=== PATIENT | male | born 1960 | race Caucasian/White ===

== ENCOUNTER 2016-06-06 10:57 | Inpatient (IN) | payer OTHER ==
[~2016-06-06] VITALS: Ht 180.3 cm; Wt 96.9 kg
[~2016-06-06 10:57] MED LIST: CEPH500T PO; NAPR500T5 PO
[2016-06-06 11:05] VITALS: BP_SYST 121; BP_SYST 123; BP_DIAS 61; BP_DIAS 72; PULSE 103; PULSE 109; RESP 19; O2SAT 93; O2SAT 95
--- NOTE | 2016-06-06 11:08 | ED.REPORT ---
HPI-Extremity Problem Lower Date of Service Jun 06, 2016 ED Provider: Jairo Ramos MD This is a 55 year old male presenting to the emergency department via EMS complaining of left foot rash and pain that began 1 week ago. States his shoe caused irritation to skin on L foot. Reports increased pain, discharge, and swelling at this time. Associated with fever an chills. Denies nausea, vomiting , cough, SOB, abdominal pain. Nursing Notes Stated Complaint: LEFT FOOT CELULITIS Nursing Notes Reviewed: Yes Allergies: Coded Allergies: penicillin (Verified Allergy, Intermediate, rash hives, 12/08/14) Scheduled Cephalexin (Cephalexin) 500 Mg Tablet 500 MG PO QID Scheduled PRN Naproxen (Naproxen) 500 Mg Tablet.dr 500 MG PO BID PRN PRN For Pain General Time Seen by MD: 11:06 Chief Complaint Other Hx Obtained From: Patient Arrived By: Walk-in Onset Occurred: Yesterday Symptom Duration: Since onset Severity: Current: Mild Pertinent Negative: Pt denies other symptoms Recent Healthcare: No recent doctor visit, No recent hospitalization Similar Sx Previous: No Past Medical History Past Medical History Notes: Healthy male Past Medical History none reported Past Surgical History none reported Smoking History Current Every Day Smoker Social History Alcohol Use: Denies alcohol use Drug Use: In recovery Other Social History: Local resident Ambulatory Status Independent Review of Systems Constitutional: Denies: Chills, Fever Musculoskeletal: Reports: Extremity pain Skin: Reports Rash, Reports Swelling Neurologic: Denies: Headache Complete sys rev & neg: except as marked. Physical Exam Initial Vital Signs Vital Signs (First) Date Time Temp Pulse Resp B/P Pulse Ox O2 Delivery O2 Flow Rate FiO2 06/06/16 11:05 109 121/72 95 06/06/16 11:05 37.0 19 Room Air - Initial VS: Reviewed General/Constitutional: Well-developed, Well-nourished Head / Eyes: Atraumatic, Normocephalic, PERRL ENT: Mucous membranes moist, Conjunctiva normal, No scleral icterus Neck: Supple, Non-tender, Full range of motion Respiratory: Breath sounds normal, Clear to auscultation, No respiratory distress Cardiovascular: Regular rate & rhythm, Heart sounds normal, Intact distal pulses Abdomen / GI: Soft, Non-tender, No guarding, No rebound, No distention Upper Extremities: Vascular intact, Neuro intact, No swelling, No tenderness Skin: Warm, Dry, No cyanosis Neurologic: Alert, Oriented, Nonfocal Psychiatric: Mood/affect normal, Behavior normal, Normal thought content Lower Extremity / Pelvis / MS: Atraumatic, Inspection NL, Full range of motion , No swelling, Non-tender, No erythema, No deformity, Neurologic intact, Vascular intact, No edema Ankle / Foot: Neurologic intact diffuse eryehtma over L MCP joint with purulent discharge. 5x4 cm of erythema. Interpretation & Diagnostics Lab Results Interpretation Result Diagram: 06/06/16 1122 06/06/16 1122 Test 06/06/16 11:22 White Blood Count 14.1th/mm3 (3.8-10.1) Red Blood Count 4.87mil/mm3 (4.40-5.80) Hemoglobin 15.1g/dL (13.8-17.2) Hematocrit 44.8% (41.0-50.0) Mean Corpuscular Volume 92.0fL (81-100) Mean Corpuscular Hemoglobin 31.0pg (27.0-35.0) Mean Corpuscular Hemoglobin Concent 33.7% (32.0-37.0) Red Cell Distribution Width 13.4% (12.3-15.4) Platelet Count 361bil/L (150-400) Neutrophils (%) (Auto) 70.4% (40-74) Lymphocytes (%) (Auto) 15.0% (14-46) Monocytes (%) (Auto) 10.3% (4-12) Eosinophils (%) (Auto) 3.3% (0-5) Basophils (%) (Auto) 0.4% (0-3) Prothrombin Time 10.2sec (8.1-12.5) Prothromb Time International Ratio 0.95ratio Activated Partial Thromboplast Time 34.0sec (22.8-33.0) Sodium Level 135mEq/L (134-144) Potassium Level 4.2mEq/L (3.5-5.2) Chloride Level 101mEq/L (97-108) Carbon Dioxide Level 21mmol/L (18-29) Blood Urea Nitrogen 10mg/dL (6-24) Creatinine 1.14mg/dL (0.76-1.27) Estimat Glomerular Filtration Rate 71mL/min (>59) Glucose Level 97mg/dL (60-99) Lactic Acid Level 1.4mmol/L (0.4-2.0) Calcium Level 8.4mg/dL (8.5-10.1) Total Bilirubin 0.5mg/dL (0.0-1.2) Aspartate Amino Transf (AST/SGOT) 17U/L (0-50) Alanine Aminotransferase (ALT/SGPT) 15U/L (0-44) Alkaline Phosphatase 67U/L (25-150) Total Protein 7.1g/dL (6.4-8.4) Albumin 3.5g/dL (3.4-5.0) ECG Interpretation ECG Interpretation: NSR at rate of 87 Time: 11:46 Interpreted by: ED physician X-Ray Interpretation Xray Interpretation: IMPRESSION: First digit soft tissue prominence which could be consistent with given history of abscess. No visualized underlying osseous abnormality. Dictated by: Maureen Castellanos M.D. on 06/06/2016 at 11:36 Approved by: Maureen Castellanos M.D. on 06/06/2016 at 11:37 Study Performed: L Toe Re-Eval/Medical Decision Med Decision/Clinical Course 55-year-old male homeless former IV drug user presenting with left great toe abscess and cellulitis times one week. No osteomyelitis on x-ray. Discussed with podiatry and we will admit for IV vancomycin and cefepime given penicillin allergy. Nothing by mouth at midnight. Podiatry to see today. Re-Evaluation/Progress : Time of Eval: 12:53 Re-Evaluation/Progress Note: Discussed need for admission, all questions addressed. Consultation #1: Referral / Consult Name: Edwin Landeros DPM Call Returned at: 12:42 Agriculture Scientist: Will see patient, Agrees with eval, Agrees with plan Note: Front Desk Administrator recommends admit Consultation #2: Referral / Consult Name: Fredy Abarca MD Consulted With: Hospitalist Call Returned at: 13:19 Agriculture Scientist: Accepts admit Counseled Regarding: Diagnosis, Lab results, Need for follow-up, Need for admission Discharge & Departure Impression: Primary Impression: Cellulitis Site of cellulitis: extremity Site of cellulitis of extremity: lower extremity Laterality: left Qualified Code: L03.116 - Cellulitis of left lower limb Disposition: ADMITTED TO HOSPITAL Discharge Condition All VS Reviewed: Yes Condition: Stable Referrals: Rae Salcedo MD (PCP) Scribe Attestation Portions of this note were transcribed by America Barksdale. I, Dr. Ramos personally performed the history, physical exam and medical decision-making; I reviewed and confirmed the accuracy of the information in the transcribed note. Signed by: miko Aguirre. 06/06/2016, 15:00. Jairo Ramos MD Jun 06, 2016 11:08 AMERICA BARKSDALE Jun 06, 2016 11:14
[2016-06-06] MEDS ORDERED: 0.9% Sodium Chloride 1,000 ML IV ONE (11:17)
[2016-06-06] MEDS ORDERED: Vancomycin Dose per Pharmacist XX ONE (11:20)
[2016-06-06] MEDS ORDERED: Cefepime Inj 2 GM in IV Premix 1 EACH IV ONE (11:30)
[2016-06-06] MEDS ORDERED: Vancomycin Inj 1,500 MG in 0.9% Sodium Chloride 500 ML IV ONE (11:35)
--- NOTE | 2016-06-06 11:39 | DRSVH ---
PROCEDURE: X-RAY TOES, TWO VIEWS INDICATIONS: L great toe re abscess TECHNIQUE: 3 views of the first toe(s) acquired. COMPARISON: None. FINDINGS: Bones: No fractures or dislocations. No suspicious bony lesions. Soft tissues: No suspicious soft tissue densities. Soft tissue prominence is present within the mid and distal aspect of the first digit. IMPRESSION: First digit soft tissue prominence which could be consistent with given history of absces s. No visualized underlying osseous abnormality. Dictated by: Maureen Castellanos M.D. on 06/06/2016 at 11:36 Approved by: Maureen Castellanos M.D. on 06/06/2016 at 11:37
[2016-06-06 11:46] LABS: INR 0.95 ratio
[2016-06-06 11:47] LABS: BASOPHILS % (AUTO) 0.4 % (0-3); EOSINOPHILS % (AUTO) 3.3 % (0-5); MONOCYTES % (AUTO) 10.3 % (4-12); NEUTROPHILS % (AUTO) 70.4 % (40-74); Platelet Count 361 bil/L (150-400)
[2016-06-06 13:18] VITALS: BP 122/65; PULSE 98; RESP 22; O2SAT 98
[2016-06-06] MEDS ORDERED: Alum-Mag Hydrox-Simeth 30 mL Suspension PO PRN (13:20)
[2016-06-06] MEDS ORDERED: Ondansetron 2 mg/mL 2 mL Inj IVPUSH PRN (13:20)
[2016-06-06 14:00] VITALS: BP 129/83; PULSE 83; RESP 20; O2SAT 98
--- NOTE | 2016-06-06 16:43 | PCM.HPMED ---
Subjective Date of Service Jun 06, 2016 Primary Provider: Admitting Physician: Fredy Abarca MD Primary Care Physician: Rae Salcedo MD Attending Physician: Fredy Abarca MD Admit Status: From the Emergency Department Chief Complaint: Left total cellulitis and abscess History of Present Illness: This is a 55 year old male with no significant past medical history who came to the emergency department via EMS complaining of left foot rash and pain that began 1 week ago. Patient stated a shoe he recently purchased at [facility] caused irritation to skin on L foot. Reports increased pain, discharge, and swelling at this time. Associated with fever an chills. He saw his primary care doctor was has some antibiotics ( cephalexin) which he took for a week without any relief. Review of Systems: A comprehensive usual by 12 points is negative except for what is described above in history of present illness regarding left foot pain and swelling Allergies Coded Allergies: penicillin (Verified Allergy, Intermediate, rash hives, 12/08/14) Home Medications Scheduled Cephalexin (Cephalexin) 500 Mg Tablet 500 MG PO QID Scheduled PRN Naproxen (Naproxen) 500 Mg Tablet.dr 500 MG PO BID PRN PRN For Pain PMH History of IV drug abuse in remission Surgical History None Family History Mother and brother have diabetes. Family history noncontributory to the present illness Social History Hx Alcohol Use: No (stopped many years ago) Hx Substance Use: Yes (FORMER IV METH/HEROIN) Smoking Status: Current Every Day Smoker (Patient has a near 45 year pack smoking) Living Arrangement: Other (patient lives with a friend) Exam Vital Signs Vital Sign - Last Date Time Temp Pulse Resp B/P Pulse Ox O2 Delivery O2 Flow Rate FiO2 06/06/16 14:00 36.8 83 20 129/83 98 Room Air Exam General: Well-nourished male, in bed comfortably in no acute distress. HEENT: PERRL, sclerae anicteric. Mouth: Moist oral mucosa, no oral thrush Chest: Normal respiratory efforts, no deformity, no chest wall tenderness Neck: Supple, no cervical lymphadenopathy, trachea is midline. Lung: Clear bilaterally on auscultation, all, no wheezing Heart: S1-S2 regular rate and rhythm, no gallop, no murmur Abdomen: Bowel sounds normal quadrant, no palpable mass, non tender, non distended Extremity: First finger of left foot is warmth and tender on palpation. Very erythematous and swollen. There is an opening ulcer with purulent discharge. No cyanosis, edema, tenderness Neuro : Awake, alert and oriented 3. Grossly non focal. Lab and Diagnostics Result Diagram: 06/06/16 1122 06/06/16 1122 X-Rays, CTs and MRIs First digit soft tissue prominence which could be consistent with given history of abscess. No visualized underlying osseous abnormality Assessment & Plan 1. Left foot abscess 2.Leukocytosis 3. Tobaccoism Patient has severe cellulitis and abscess involving mainly the first digit extendeing over the dorsum of the foot. He fell outpatient treatment with antibiotics. Start vancomycin. Dose to be adjusted per pharmacy's. Start clindamycin 600 mg IV. Hours. Wound culture, blood culture. Podiatry consulted by ER physician. Heparin for DVT prophylaxis. Nicotine patch for smoking urge. Smoking cessation counseling provided Percocet for pain. Pain Evaluation: Adequate Pain Control VTE Prophylaxis: Sub-Q Heparin (Unfractionated) Resuscitation Status: CPR: Attempt Resuscitation Time spent 55 minutes Fredy Abarca MD Jun 06, 2016 16:43
[2016-06-06] MEDS: oxyCODONE-Acetamin 5-325 mg Tablet PO PRN ×2 (16:57→23:45)
[2016-06-06 17:09] VITALS: BP 109/70; PULSE 83; RESP 18; O2SAT 99
[2016-06-06] MEDS: Clindamycin Inj 600 MG in IV Premix 1 EACH IV SCH (17:47)
--- NOTE | 2016-06-06 18:29 | PCM.CONPHA ---
Subjective Date of Service: Jun 06, 2016 Left total cellulitis and abscess Reason for Pharmacy Consult: Vancomycin Dosing Objective Vital Signs Date Time Temp Pulse Resp B/P Pulse Ox O2 Delivery O2 Flow Rate FiO2 06/06/16 17:09 36.5 83 18 109/70 99 Room Air 06/06/16 14:00 36.8 83 20 129/83 98 Room Air 06/06/16 13:18 98 22 122/65 98 06/06/16 11:05 37.0 103 19 123/61 93 Room Air 06/06/16 11:05 109 121/72 95 Weight (Kilograms): 96.900 Height (Feet): 5 Height (Inches): 11.00 Test 06/06/16 11:22 White Blood Count 14.1th/mm3 (3.8-10.1) Red Blood Count 4.87mil/mm3 (4.40-5.80) Hemoglobin 15.1g/dL (13.8-17.2) Hematocrit 44.8% (41.0-50.0) Mean Corpuscular Volume 92.0fL (81-100) Mean Corpuscular Hemoglobin 31.0pg (27.0-35.0) Mean Corpuscular Hemoglobin Concent 33.7% (32.0-37.0) Red Cell Distribution Width 13.4% (12.3-15.4) Platelet Count 361bil/L (150-400) Neutrophils (%) (Auto) 70.4% (40-74) Lymphocytes (%) (Auto) 15.0% (14-46) Monocytes (%) (Auto) 10.3% (4-12) Eosinophils (%) (Auto) 3.3% (0-5) Basophils (%) (Auto) 0.4% (0-3) Prothrombin Time 10.2sec (8.1-12.5) Prothromb Time International Ratio 0.95ratio Activated Partial Thromboplast Time 34.0sec (22.8-33.0) Sodium Level 135mEq/L (134-144) Potassium Level 4.2mEq/L (3.5-5.2) Chloride Level 101mEq/L (97-108) Carbon Dioxide Level 21mmol/L (18-29) Blood Urea Nitrogen 10mg/dL (6-24) Creatinine 1.14mg/dL (0.76-1.27) Estimat Glomerular Filtration Rate 71mL/min (>59) Glucose Level 97mg/dL (60-99) Lactic Acid Level 1.4mmol/L (0.4-2.0) Calcium Level 8.4mg/dL (8.5-10.1) Total Bilirubin 0.5mg/dL (0.0-1.2) Aspartate Amino Transf (AST/SGOT) 17U/L (0-50) Alanine Aminotransferase (ALT/SGPT) 15U/L (0-44) Alkaline Phosphatase 67U/L (25-150) Total Protein 7.1g/dL (6.4-8.4) Albumin 3.5g/dL (3.4-5.0) Assessment/Plan Assessment/Plan Vanco per Rx Indication: Cellulitis Trough Goal: 10 -15 LD: 1500mg, then 1000mg q12h; Estimated trough @ SS 12.7, Vd 63 Trough level to be drawn before 4th dose @ mid-night 06/08 Rojas Lopez PharmD Jun 06, 2016 18:29
--- NOTE | 2016-06-06 18:40 | NUR ---
Arrival to Floor Patient arrived to floor from ED at 1400. Patient alert and oriented, with some pain in his left foot. Foot wound reddened, swollen. Ordered pain medication given, which helped to relieve the pain. Ordered SCDs in place, vital signs stable. Patient denies any nausea, or previously reported dizziness. Ordered antibiotics hung. Care is ongoing.
[2016-06-06] MEDS ORDERED: SULF1TAB35 PO (18:59)
[2016-06-06] MEDS ORDERED: CYCL10TA9 PO (18:59)
[2016-06-06] MEDS ORDERED: LORA10CA PO (18:59)
[2016-06-06] MEDS ORDERED: ALBU8.5H2 INHALATION (18:59)
[2016-06-06] MEDS ORDERED: [UNRECOGNIZED DRUG - CODE] PO (18:59)
[2016-06-06] MEDS ORDERED: MULT-1018 PO (18:59)
[2016-06-06] MEDS ORDERED: RANI150C4 PO (18:59)
[2016-06-06] MEDS ORDERED: CALC1TAB90 PO (18:59)
[2016-06-06] MEDS ORDERED: CLIN-78 PO (18:59)
[2016-06-06] MEDS ORDERED: GABA-502 PO (18:59)
[2016-06-06] MEDS ORDERED: ALBU18HF INH (18:59)
[2016-06-06] MEDS ORDERED: CLOT30SO TOPICAL (18:59)
[2016-06-06] MEDS ORDERED: FLUT9.9S NS (18:59)
[2016-06-06] MEDS ORDERED: ACET325C PO (18:59)
[2016-06-06] MEDS ORDERED: ASCO100T11 PO (18:59)
[2016-06-06 19:27] VITALS: BP 114/78; PULSE 75; RESP 18; O2SAT 97
[2016-06-06] MEDS: Heparin 5,000 Unit/mL Inj SUBQ SCH (20:46)
[2016-06-07] MEDS: Clindamycin Inj 600 MG in IV Premix 1 EACH IV SCH ×3 (00:27→16:55)
[2016-06-07] MEDS: Vancomycin Inj 1,000 MG in IV Premix 1 EACH IV SCH ×2 (01:04→13:06)
[2016-06-07 01:30] VITALS: BP 109/73; PULSE 71; RESP 20; O2SAT 95
[2016-06-07 04:41] VITALS: BP 108/73; PULSE 70; RESP 18; O2SAT 95
--- NOTE | 2016-06-07 05:20 | NUR ---
Pain Patient states his right pointer finger is causing pain and is swollen. Patient states he had a sliver that became infected and is becoming worse. Patient currently receiving IV ABX. A&X3. Patient was given 1 Percocet and Tylenol for pain 10/26 once this shift. Pain has remained manageable for patient since.
[2016-06-07] MEDS: Vancomycin Dose per Pharmacist XX SCH (08:30)
[2016-06-07] MEDS ORDERED: 0.9% Sodium Chloride 250 ML ONE (08:32)
[2016-06-07] MEDS: Heparin 5,000 Unit/mL Inj SUBQ SCH ×2 (08:41→20:34)
[2016-06-07] MEDS: oxyCODONE-Acetamin 5-325 mg Tablet PO PRN ×4 (08:42→20:58)
--- NOTE | 2016-06-07 08:59 | PCM.PNMED ---
Subjective Date of Service Jun 07, 2016 Subjective Follow-up for left foot abscess and cellulitis. Patient seen and examined at bedside. He status post incision and drainage at bedside by podiatry. He is afebrile. No new complaints Exam Vital Signs Vital Sign - Last Date Time Temp Pulse Resp B/P Pulse Ox O2 Delivery O2 Flow Rate FiO2 06/07/16 04:41 36.4 70 18 108/73 95 Room Air Intake and Output 06/06/16 06/06/16 06/07/16 Cumulative From/Thru 15:00 23:00 07:00 06/06/16 11:05 - 06/07/16 07:00 Intake Total 500 ml 887 ml 1387 ml Output Total 1350 ml 1350 ml Balance 500 ml -463 ml 37 ml Intake Oral 500 ml 637 ml 1137 ml IV Total 250 ml 250 ml Output Urine Total 1350 ml 1350 ml # Voids 1 1 # Bowel Movements 0 0 0 Exam General: nad. In bed comfortably HEENT: sclerae anicteric.h Chest: Normal respiratory efforts Neck: Supple Lung: Clear bilaterally on auscultation, no crackles Heart: S1-S2 regular rate and rhythm, no gallop, no murmur Abdomen: Benign Extremity: First finger of left foot is warmth and tender on palpation. Very erythematous and swollen. Dressing in place No cyanosis, edema, tenderness Neuro : . Grossly non focal. IVs and Medications Medications Reviewed: Medications were reviewed in detail Lab and Diagnostics Result Diagram: 06/06/16 1122 06/06/16 1122 X-Rays, CTs and MRIs First digit soft tissue prominence which could be consistent with given history of abscess. No visualized underlying osseous abnormality Assessment & Plan 1. Left foot abscess 2.Leukocytosis 3. Tobaccoism Patient has severe cellulitis and abscess involving mainly the first digit extendeing over the dorsum of the foot. Patient is status post incision and drainage at bedside by podiatry. Case discussed Continue vancomycin and clindamycin pending culture Patient is scheduled to the OR for tomorrow and evening for debridement and washing Heparin for DVT prophylaxis. Nicotine patch for smoking urge. Smoking cessation counseling provided Percocet for pain. VTE Prophylaxis: Sub-Q Heparin (Unfractionated) VTE Mechanical Devices: Intermittant Pneumatic CD Resuscitation Status: CPR: Attempt Resuscitation Time spent 25 minutes Fredy Abarca MD Jun 07, 2016 08:59
[2016-06-07 11:10] VITALS: BP 105/68; PULSE 74; RESP 16; O2SAT 96
[2016-06-07] MEDS: Ketorolac 15 mg/mL Inj IVPUSH PRN (11:17)
--- NOTE | 2016-06-07 12:23 | PCM.CHPPOD ---
Subjective Date of service Jun 06, 2016 History of Present Illness 55 year non diabetic male admitted for treatment of abscess of the left great toe. Patient states that he has noticed his toe was rubbing the top of his shoe for the past two weeks. He states that he has a history of IVDA however he has been clean for 7 years. patient complains of pain to the left great toe. he states that he attempted to drain his abscess by himself however it was very painful. Allergy Allergies: Coded Allergies: penicillin (Verified Allergy, Intermediate, rash hives, 12/08/14) Medications Acetaminophen (Acetaminophen) 325 Mg Capsule 650 MG PO PRN For Pain Albuterol HFA (Proair HFA) 8.5 Gm Hfa.aer.ad 2 PUFFS INHALATION Q4H Albuterol Sulfate (Ventolin HFA Inhaler) 200 Puff/18 Gm Inhaler 1 PUFF INH Q4 PRN PRN For Wheezing Ascorbic Acid (Vitamin C) 100 Mg Tablet 100 MG PO Calcium Carbonate/Mag Hydrox (Mi-Acid Ds Tablet) 1 Each Tab.chew 2 EACH PO PRN For Indigestion Cephalexin (Cephalexin) 500 Mg Tablet 500 MG PO QID Clindamycin (Clindamycin) 300 Mg Capsule 300 MG PO QID Clotrimazole 1% (Clotrimazole 1%) 30 Ml Solution 30 ML TOPICAL BID Cyclobenzaprine (Cyclobenzaprine) 10 Mg Tablet 10 MG PO BID PRN PRN Spasm Etodolac (Etodolac) 300 Mg Capsule 300 MG PO BID Fluticasone Propionate (Flonase Allergy Relief) 50 Mcg/Actuation [place].susp 9.9 ML NS PRN For Congestion Gabapentin (Gabapentin) 300 Mg Capsule 600 MG PO BID Loratadine (Claritin) 10 Mg Capsule 10 MG PO DAILY Multivitamin (Multi Vitamin Daily) 1 Each Tablet 1 EACH PO DAILY Naproxen (Naproxen) 500 Mg Tablet.dr 500 MG PO BID PRN PRN For Pain Sulfamethoxazole/Trimeth 800-160 mg (Bactrim DS 800-160 mg) 1 Each Tablet 2 TABLET PO BID Past Medical History Surgeries: No Medical History: Surgical History: Social History Hx Alcohol Use: Yes (More than 25 years ago) Hx Substance Use: Yes (Last used 7 years ago) Smoking Status: Current Every Day Smoker (Patient has a near 45 year pack smoking) Podiatry Consult Exam Vital Signs Vital Sign - Last Date Time Temp Pulse Resp B/P Pulse Ox O2 Delivery O2 Flow Rate FiO2 06/07/16 11:10 36.6 74 16 105/68 96 Room Air Intake and Output 06/06/16 06/06/16 06/07/16 Cumulative From/Thru 15:00 23:00 07:00 06/06/16 11:05 - 06/07/16 07:00 Intake Total 500 ml 887 ml 1387 ml Output Total 1350 ml 1350 ml Balance 500 ml -463 ml 37 ml Intake Oral 500 ml 637 ml 1137 ml IV Total 250 ml 250 ml Output Urine Total 1350 ml 1350 ml # Voids 1 1 # Bowel Movements 0 0 0 Result Diagram: 06/06/16 1122 06/06/16 1122 Lab Test 06/06/16 11:22 White Blood Count 14.1th/mm3 (3.8-10.1) Red Blood Count 4.87mil/mm3 (4.40-5.80) Hemoglobin 15.1g/dL (13.8-17.2) Hematocrit 44.8% (41.0-50.0) Mean Corpuscular Volume 92.0fL (81-100) Mean Corpuscular Hemoglobin 31.0pg (27.0-35.0) Mean Corpuscular Hemoglobin Concent 33.7% (32.0-37.0) Red Cell Distribution Width 13.4% (12.3-15.4) Platelet Count 361bil/L (150-400) Neutrophils (%) (Auto) 70.4% (40-74) Lymphocytes (%) (Auto) 15.0% (14-46) Monocytes (%) (Auto) 10.3% (4-12) Eosinophils (%) (Auto) 3.3% (0-5) Basophils (%) (Auto) 0.4% (0-3) Prothrombin Time 10.2sec (8.1-12.5) Prothromb Time International Ratio 0.95ratio Activated Partial Thromboplast Time 34.0sec (22.8-33.0) Sodium Level 135mEq/L (134-144) Potassium Level 4.2mEq/L (3.5-5.2) Chloride Level 101mEq/L (97-108) Carbon Dioxide Level 21mmol/L (18-29) Blood Urea Nitrogen 10mg/dL (6-24) Creatinine 1.14mg/dL (0.76-1.27) Estimat Glomerular Filtration Rate 71mL/min (>59) Glucose Level 97mg/dL (60-99) Hemoglobin A1c 5.4% (4.8-5.6) Lactic Acid Level 1.4mmol/L (0.4-2.0) Calcium Level 8.4mg/dL (8.5-10.1) Total Bilirubin 0.5mg/dL (0.0-1.2) Aspartate Amino Transf (AST/SGOT) 17U/L (0-50) Alanine Aminotransferase (ALT/SGPT) 15U/L (0-44) Alkaline Phosphatase 67U/L (25-150) Total Protein 7.1g/dL (6.4-8.4) Albumin 3.5g/dL (3.4-5.0) Exam General: Alert, Oriented X3, Cooperative, No Acute Distress Lower Extremities: Left: Edema localized Extremity warm Lower Extremity Pulses: Palpable: Left Dorsalis Pedis Left Posterior Tibal Additional Information: erythematous left great toe extending to the 1st MTPJ. open ulceration overlying the IPJ with noted purulent discharge. Pain to palpation of the left great toe. no noted streaking. mild fluctuance of the left hallux IPJ no exposed bone or tendon. Assessment & Plan Assessment Abscess/cellulitis of the left great toe. Problems: Plan Detailed evaluation at bedside today 06/06/16 reveals subcutaneous abscess of the left 1st interphalangeal joint. verbal consent obtained from patient to preform bedside incision and drainage. The left hallux was prepped with betadine. a #11 blade was used to make a linear stab incision approximately .5 cm in length overlying the 1st IPJ. moderate purulent drainage was noted and a wound culture was taken. local compression was applied and approximately 4 ML of purulent drainage was expressed. the wound was copiously flushed with normal saline until no further purulent drainage was noted. the wound was packed with 1 /4 inch iodoform gauze and dressed with sterile 4x4 gauze and kerlix. continue broad spectrum antibiotics. Consider Infectious disease consultation once wound cultures have returned. patient will likely require 6 weeks IV antibiotic therapy however this patient does have a history of IV drug abuse Plan for daily dressing change and wound flush by podiatry service. Plan for OR wound debridement wednesday after 5pm. please make NPO after 9 AM wednesday VTE Prophylaxis: Sub-Q Heparin (Unfractionated) VTE Mechanical Devices: Intermittant Pneumatic CD Edwin Landeros DPM Jun 07, 2016 12:23
--- NOTE | 2016-06-07 15:48 | NUR ---
Social Work Note: Screen Note Data& Assessment: EMR Reviewed. Clifford Orr is a 55 year old male admitted on 06/06/2016 for cellulitis. Pt has [employer] insurance coverage and sees Rae Salcedo MD for primary care. Pt lives in [place] and is independent at baseline. Per MD in morning rounds, pt will be going to the OR tomorrow for his foot wound. SW to continue to follow for any wound care needs. No other discharge needs identified at this time. Plan: Anticipated discharge home via POV when medically ready. SW to continue to follow for any wound care needs. No other discharge needs identified at this time. NANCY Chandler
--- NOTE | 2016-06-07 20:04 | PCM.PNPOD ---
Subjective Date of Service: Jun 07, 2016 Date of Service: Jun 07, 2016 Visit Information: Reason for Visit Celulitis Surgery/Surgery Date Post-Op Day # Date of Admission: Jun 06, 2016 at 13:04 Hospital Day #2 Subjective: 55 year old male evaluated at bedside in NAD. Patient admitted for treatment of left great toe cellulitis and local abscess. no new complaints overnight Postop General: No Complaints Gastrointestinal: Good Appetite Pain Management: PO Objective Vital Sign - Last Date Time Temp Pulse Resp B/P Pulse Ox O2 Delivery O2 Flow Rate FiO2 06/07/16 11:10 36.6 74 16 105/68 96 Room Air Intake and Output 06/06/16 06/06/16 06/07/16 Cumulative From/Thru 15:00 23:00 07:00 06/06/16 11:05 - 06/07/16 07:00 Intake Total 500 ml 887 ml 1387 ml Output Total 1350 ml 1350 ml Balance 500 ml -463 ml 37 ml Intake Oral 500 ml 637 ml 1137 ml IV Total 250 ml 250 ml Output Urine Total 1350 ml 1350 ml # Voids 1 1 # Bowel Movements 0 0 0 Result Diagram: 06/06/16 1122 06/06/16 1122 Lab Test 06/06/16 11:22 White Blood Count 14.1th/mm3 (3.8-10.1) Red Blood Count 4.87mil/mm3 (4.40-5.80) Hemoglobin 15.1g/dL (13.8-17.2) Hematocrit 44.8% (41.0-50.0) Mean Corpuscular Volume 92.0fL (81-100) Mean Corpuscular Hemoglobin 31.0pg (27.0-35.0) Mean Corpuscular Hemoglobin Concent 33.7% (32.0-37.0) Red Cell Distribution Width 13.4% (12.3-15.4) Platelet Count 361bil/L (150-400) Neutrophils (%) (Auto) 70.4% (40-74) Lymphocytes (%) (Auto) 15.0% (14-46) Monocytes (%) (Auto) 10.3% (4-12) Eosinophils (%) (Auto) 3.3% (0-5) Basophils (%) (Auto) 0.4% (0-3) Prothrombin Time 10.2sec (8.1-12.5) Prothromb Time International Ratio 0.95ratio Activated Partial Thromboplast Time 34.0sec (22.8-33.0) Sodium Level 135mEq/L (134-144) Potassium Level 4.2mEq/L (3.5-5.2) Chloride Level 101mEq/L (97-108) Carbon Dioxide Level 21mmol/L (18-29) Blood Urea Nitrogen 10mg/dL (6-24) Creatinine 1.14mg/dL (0.76-1.27) Estimat Glomerular Filtration Rate 71mL/min (>59) Glucose Level 97mg/dL (60-99) Hemoglobin A1c 5.4% (4.8-5.6) Lactic Acid Level 1.4mmol/L (0.4-2.0) Calcium Level 8.4mg/dL (8.5-10.1) Total Bilirubin 0.5mg/dL (0.0-1.2) Aspartate Amino Transf (AST/SGOT) 17U/L (0-50) Alanine Aminotransferase (ALT/SGPT) 15U/L (0-44) Alkaline Phosphatase 67U/L (25-150) Total Protein 7.1g/dL (6.4-8.4) Albumin 3.5g/dL (3.4-5.0) Exam General: Alert, Oriented X3, Cooperative, No Acute Distress Lower Extremities: Left: Edema localized Extremity warm Lower Extremity Pulses: Palpable: Left Dorsalis Pedis Left Posterior Tibal Postop Sensory Motor: Distal Motor Intact, Motor 5/5 Podiatry WOUND : Wound Location/Description left hallux ipj ulceration full thickness to subcutaneous tissue without exposed bone or tendon. erythema extends to the MTPJ and is of less intensity then last evaluation. no mal odor. mild purulent drainage expressed with compression of the base of the hallux. Assessment & Plan Impression improving left hallux abscess/cellulitis. Problems: Plan hallux block preformed following verbal consent consisting of 6ml of 2% lidocaine plain. #11 blade utilized to extend dorsal IPJ incision approximately 1cm proximally. the wound was then explored with a sterile scissor and a minimal amount of additional purulent discharge was noted. this wound was copiously flushed with normal saline and packed with iodoform packing gauze. wound dressed with betadine soaked gauze and DSD. Continue IV antibiotics. plan for OR tomorrow for washout and debridement of left hallux abscess wound. please make NPO after 9 am for surgery after 5PM podiatry will continue to follow daily. VTE Prophylaxis: Sub-Q Heparin (Unfractionated) Edwin Landeros DPM Jun 07, 2016 20:04
[2016-06-07 21:52] VITALS: BP 106/62; PULSE 79; RESP 18; O2SAT 94
[2016-06-08] VITALS (8 sets, daily range): BP systolic 106–128; BP diastolic 63–81; PULSE 69–85; RESP 14–20; O2SAT 94–99
[2016-06-08] MEDS ORDERED: Vancomycin Serum Trough XX ONE
[2016-06-08] MEDS: oxyCODONE-Acetamin 5-325 mg Tablet PO PRN ×6 (01:00→21:29)
[2016-06-08] MEDS: Clindamycin Inj 600 MG in IV Premix 1 EACH IV SCH ×4 (01:01→23:38)
[2016-06-08] MEDS: Vancomycin Inj 1,000 MG in IV Premix 1 EACH IV SCH ×2 (01:41→13:24)
--- NOTE | 2016-06-08 04:38 | NUR ---
Pain Pt reporting pain to left foot about 5/10 and says that he has a high pain tolerance up to 7/10. Pt does appear in pain, grimacing with movement and is taking 1 tab of Percocet just about every 4 hours for management of pain. Pt also took 975 mg PO Tylenol x1 when it was too early for the Percocet. Pt continues to be concerned about right pointer finger sliver/bruising filled with fluid area and wishes for a hospitalist to evaluate this morning. Left foot with ROSE wrap is CDI.
[2016-06-08] MEDS: Vancomycin Dose per Pharmacist XX SCH (07:54)
[2016-06-08] MEDS: Heparin 5,000 Unit/mL Inj SUBQ SCH ×2 (08:16→21:27)
--- NOTE | 2016-06-08 08:35 | PCM.HPANE ---
Patient Data Surgeon Admitting Provider:Fredy Abarca MD Attending Provider:Fredy Abarca MD Primary Care Physician:Rae Salcedo MD Other Provider: Reason for Visit Celulitis Ht/WT & BMI Height (Feet): 5 Height (Inches): 11.00 Weight (Kilograms): 96.900 Body Mass Index 29.91 Allergies Coded Allergies: penicillin (Verified Allergy, Intermediate, rash hives, 12/08/14) Past Anesthesia History Anesthesia History: Denies:: Anesthesia Reactions Diabetes History Hx Diabetes?: No MRSA MRSA: No Medications Active Scripts Naproxen 500 Mg Tablet.dr500 Mg PO BID PRN For Pain 10 Days Ref 0 Prov:Prasanth Plaza PAC 12/08/14 Cephalexin 500 Mg Agoykg052 Mg PO QID #40 TABLET Ref 0 Prov:Prasanth Plaza PAC 12/08/14 Reported Medications Multivitamin (Multi Vitamin Daily)1 Each Tablet1 Each PO DAILY 30 Days Ref 0 06/06/16 Ascorbic Acid (Vitamin C)100 Mg Sibgbr482 Mg PO 06/06/16 Albuterol HFA (Proair HFA)8.5 Gm Hfa.aer.ad2 Puffs INHALATION Q4H #1 INHALER 06/06/16 Sulfamethoxazole/Trimeth 800-160 mg (Bactrim DS 800-160 mg)1 Each Tablet2 Tablet PO BID Ref 0 06/06/16 Clotrimazole 1% 30 Ml Mdejjswg47 Ml TOPICAL BID 06/06/16 Etodolac 300 Mg Fsebkdi573 Mg PO BID 06/06/16 Gabapentin 300 Mg Vsyuima179 Mg PO BID Ref 0 06/06/16 Cyclobenzaprine 10 Mg Wbbizq56 Mg PO BID PRN Spasm 06/06/16 Fluticasone Propionate (Flonase Allergy Relief)50 Mcg/Actuation [place].susp9.9 Ml NS PRN For Congestion 06/06/16 Loratadine (Claritin)10 Mg Eoyiejj79 Mg PO DAILY Ref 0 06/06/16 Calcium Carbonate/Mag Hydrox (Mi-Acid Ds Tablet)1 Each Tab.chew2 Each PO PRN For Indigestion 06/06/16 Clindamycin 300 Mg Uqccffs445 Mg PO QID Ref 0 06/06/16 Albuterol Sulfate (Ventolin HFA Inhaler)200 Puff/18 Gm Inhaler1 Puff INH Q4 PRN For Wheezing #1 INHALER Ref 0 06/06/16 Acetaminophen 325 Mg Ducpkwn180 Mg PO PRN For Pain 06/06/16 Discontinued Reported Medications Ranitidine 150 Mg Jrpehjj266 Mg PO DAILY PRN For Dyspepsia or Heartburn Ref 0 06/06/16 History History of ENT Problems?: No HEENT History: Denies:: Cataracts Dysphagia Glaucoma Sinus Problem Denture Type: Full- Upper Hx of Heart Problems?: No Cardiovascular History: Denies:: Cardiac Surgery Chest Pain Congestive Heart Failure Edema Heart Murmur Hypertension Irregular Heartbeat Pacemaker Thrombophlebitis Hx of Respiratory Problem?: Yes Respiratory History: Positive for:: Pneumonia (Few times) Denies:: Asthma COPD Chest Surgery Dyspnea Emphysema Hemoptysis Tuberculosis Other Resp Pertinent History: Patient reports yearly bronchitis. Hx Neurologic Problems?: No Neurological History: Denies:: Alzheimer's Disease CVA Dementia Dizziness Headaches Parkinson's Disease Seizures Hx of GI Problems?: No Gastrointestinal History: Positive for:: Gastroesphageal Reflux Denies:: Diverticulitis Gastrointestinal Bleeding Heartburn Hepatitis Hiatal Hernia Rectal Bleeding Hx of Problems?: No Genitourinary History: Denies:: HX of Hemodialysis Kidney Stones Urinary Tract Infection HX of Peritoneal Dialysis: No Male Hx: Denies:: Prostate Problems Scrotal Mass Testicular Surgery Hx Musculoskeletal Problems?: No Musculoskeletal History: Positive for:: Back Injury Denies:: Joint Replacement Musculoskeletal Trauma Hx of Psycho/Social Problems?: No Psycho Social History: Positive for:: Hx Depression Denies:: Anxiety Bipolar Disorder Suicide Attempt Hx Surgeries?: No Other History: Denies:: Cancer (Patient states doctor recently informed of tumor in abdomen) Hospitalization Thyroid Disease History Blood Transfusions: Positive for:: Accept Blood Products? Denies:: Blood Transfuse Reaction Blood Transfusions Hx Diabetes: No Hx Alcohol Use: Yes (More than 25 years ago)Hx Substance Use: Yes (Last used 7 years ago) Smoking Status: Current Every Day Smoker (Patient has a near 45 year pack smoking) Have You Smoked inLast 12 mo: YesApprox How Many Cigarettes/day: 10 Stop/Bang Treated for Sleep Apnea?: No Do You Have a CPAP Machine?: No S-Snoring: Do You Snore Loudly: No T-Tired: feel tired, fatigued: No O-Obsered: Observed not breath: No P-Blood Pressure: treated: No B- Body Mass Index > 35 kg/m2: No A- Age over 50: Yes N- Neck Large Circumference: No G- Gender Male: Yes ZULEMA Total Score: 1 Risk Assessment Category Category 1A: Patient has history of documented sleep apnea, and HAS NOT received any narcotic, sedative or anesthesia administration during this stay. Category 1B: Patient has history of documented sleep apnea, and HAS received any narcotic , sedative or anesthesia administration during this stay Category 2: Patient has SUSPECTED Obstructive Sleep Apnea, and HAS received any narcotic , sedative or anesthesia administration during this stay. Category 3: Patient has SUSPECTED Obstructive Sleep Apnea and HAS NOT received narcotic, sedative or anesthesia administration during this stay. Category 4: Outpatient in Procedural Areas with known sleep apnea or who screen positive for High Risk via the STOP/BANG questionnaire. Exam Exam Vital Signs Vital Signs Date Time Temp Pulse Resp B/P Pulse Ox O2 Delivery O2 Flow Rate FiO2 06/08/16 04:56 36.5 77 18 128/81 96 Room Air Meds/Labs/Diagnostics Admission Meds Current Medications Miscellaneous (Vancomycin Serum Trough) VANCOMYCIN TROUGH PER PHARMACY ONCE ONCE XX Last administered on 06/08/16t 00:00; Start 06/08/16 at 00:00; Stop at 00:01; Status DC Labs Test 06/06/16 11:22 06/08/16 00:00 White Blood Count 14.1th/mm3 (3.8-10.1) Red Blood Count 4.87mil/mm3 (4.40-5.80) Hemoglobin 15.1g/dL (13.8-17.2) Hematocrit 44.8% (41.0-50.0) Mean Corpuscular Volume 92.0fL (81-100) Mean Corpuscular Hemoglobin 31.0pg (27.0-35.0) Mean Corpuscular Hemoglobin Concent 33.7% (32.0-37.0) Red Cell Distribution Width 13.4% (12.3-15.4) Platelet Count 361bil/L (150-400) Neutrophils (%) (Auto) 70.4% (40-74) Lymphocytes (%) (Auto) 15.0% (14-46) Monocytes (%) (Auto) 10.3% (4-12) Eosinophils (%) (Auto) 3.3% (0-5) Basophils (%) (Auto) 0.4% (0-3) Prothrombin Time 10.2sec (8.1-12.5) Prothromb Time International Ratio 0.95ratio Activated Partial Thromboplast Time 34.0sec (22.8-33.0) Sodium Level 135mEq/L (134-144) Potassium Level 4.2mEq/L (3.5-5.2) Chloride Level 101mEq/L (97-108) Carbon Dioxide Level 21mmol/L (18-29) Blood Urea Nitrogen 10mg/dL (6-24) Creatinine 1.14mg/dL (0.76-1.27) Estimat Glomerular Filtration Rate 71mL/min (>59) Glucose Level 97mg/dL (60-99) Hemoglobin A1c 5.4% (4.8-5.6) Lactic Acid Level 1.4mmol/L (0.4-2.0) Calcium Level 8.4mg/dL (8.5-10.1) Total Bilirubin 0.5mg/dL (0.0-1.2) Aspartate Amino Transf (AST/SGOT) 17U/L (0-50) Alanine Aminotransferase (ALT/SGPT) 15U/L (0-44) Alkaline Phosphatase 67U/L (25-150) Total Protein 7.1g/dL (6.4-8.4) Albumin 3.5g/dL (3.4-5.0) Vancomycin Level Trough 9.9mcg/mL Plan Impression Patient chart reviewed, patient interviewed and anesthestic plan with risks, benefits, and alternatives discussed, and informed consent obtained. Ursula Angel MD Jun 08, 2016 08:35
[2016-06-08] MEDS ORDERED: Propofol 10,000 mCg/mL 20 mL Inj ONE ×2 (08:51→10:28)
[2016-06-08] MEDS ORDERED: fentaNYL-PF 50 mCg/mL 2 mL Inj ONE (08:51)
[2016-06-08 09:45] LABS: Mean Corpuscular Hemoglobin 30.6 pg (27.0-35.0); Mean Corpuscular Volume 91.9 fL (81-100)
[2016-06-08] MEDS: Ketorolac 15 mg/mL Inj IVPUSH PRN ×2 (10:54→23:37)
--- NOTE | 2016-06-08 11:33 | NUR ---
ACTIVITY Percocet 1 tab PO and Toradol IVP administered for complaints of pain. Patients pain level via FELDT scale is 0/10 after his pain meds. Denies nausea. Patient has been NPO since 0900 for anticipated surgery at 1700. No emesis noted. Denies SOB. Patient has been able to ambulate in his room with his crutches. Dressing is CDI.
[2016-06-08] MEDS ORDERED: Bupivacaine-MPF 0.5% 30 mL Inj INJ ONE (13:37)
--- NOTE | 2016-06-08 16:23 | NUR ---
Wound care Wound evaluation order received, pt seen at bedside. 55 yo male admitted for abscess at his foot being followed by Dr Landeros of podiatry, now complaining of right second finger pain. reportedly pt had a sliver of treated wood in the finger weeks ago and also used this hand to clean out his catbox. Now presents with a small defect that is with some(<5 cc's) pus expressed by squeezing his finger. I cleaned the area with hydrogen peroxide and redressed it with a mepilex foam dressing. There is mild erythema to the level of the DIP, AROM is normal and I can appreciate no crepitus. I would feel better if an orthopedic would weigh in on this problem, perhaps an X ray would be useful. Nursing notified of this concern.
--- NOTE | 2016-06-08 16:54 | NUR ---
spiritual care: pt request brief visit; pt reported on his medical situation and hopefulness and desire for prayer. Pt explored his anxieties about surgery, and welcomed spiritual support and prayer.
[2016-06-08] MEDS ORDERED: Lactated Ringer's 1,000 ML IV SCH (17:38)
[2016-06-08] MEDS ORDERED: Lactated Ringer's 500 ML IV PRN (17:38)
[2016-06-08] MEDS ORDERED: hydrALAZINE 20 mg/mL Inj IVPUSH PRN (17:40)
[2016-06-08] MEDS ORDERED: Dexamethasone 4 mg/mL Inj IVPUSH PRN (17:40)
[2016-06-08] MEDS ORDERED: Phenylephrine 10,000 mCg/mL Inj IVPUSH PRN (17:40)
[2016-06-08] MEDS ORDERED: MetoCLOpramide 5 mg/mL 2 mL Inj IVPUSH PRN (17:40)
[2016-06-08] MEDS ORDERED: HYDROmorphone 1 mg/mL Inj IVPUSH PRN (17:40)
[2016-06-08] MEDS ORDERED: EPHEDrine Sulfate 50 mg/mL Inj IVPUSH PRN (17:40)
[2016-06-08] MEDS ORDERED: fentaNYL-PF 50 mCg/mL 2 mL Inj IVPUSH PRN (17:40)
[2016-06-08] MEDS ORDERED: Ondansetron 2 mg/mL 2 mL Inj IVPUSH PRN (17:40)
[2016-06-08] MEDS ORDERED: Labetalol 5 mg/mL 4 mL Inj IV PRN (17:40)
[2016-06-08] MEDS ORDERED: Atropine 0.4 mg/mL Inj IVPUSH PRN (17:40)
--- NOTE | 2016-06-08 17:56 | PCM.PNMED ---
Subjective Date of Service Jun 08, 2016 Subjective denies any new issues/complaints Exam Vital Signs Vital Sign - Last Date Time Temp Pulse Resp B/P Pulse Ox O2 Delivery O2 Flow Rate FiO2 06/08/16 13:58 36.6 76 18 117/73 99 Room Air Intake and Output 06/07/16 06/07/16 06/08/16 Cumulative From/Thru 15:00 23:00 07:00 06/06/16 11:05 - 06/08/16 06:05 Intake Total 998 ml 1040 ml 3425 ml Output Total 1850 ml 1750 ml 4950 ml Balance -852 ml -710 ml -1525 ml Intake Oral 998 ml 636 ml 2771 ml IV Total 404 ml 654 ml Output Urine Total 1850 ml 1750 ml 4950 ml # Voids 1 # Bowel Movements 0 General: Alert, Cooperative, No Acute Distress Head: Normal Eyes: Scleral Anicteric Nose: Mucous Membr Moist/[place] Mouth: Mucous Membr Moist/[place] Neck: Supple Chest & Lungs: Chest Wall Normal, Clear to auscultation & percussion Cardiovascular: Regular Rate/Rhythm Abdomen: Non-tender, Non-distended, Normoactive bowel tones, Soft Extremities: No cyanosis/clubbing/edma bilat Skin: Other (feet in dressing bilat) Neurological: Grossly Neurologically Intact, Normal Speech IVs and Medications Medications Reviewed: Medications were reviewed in detail Lab and Diagnostics Result Diagram: 06/08/16 0935 06/06/16 1122 X-Rays, CTs and MRIs First digit soft tissue prominence which could be consistent with given history of abscess. No visualized underlying osseous abnormality Assessment & Plan 55 year old male with no significant past medical history who came to the emergency department via EMS complaining of left foot rash and pain that began 1 week ago. Patient stated a shoe he recently purchased at [employer] caused irritation to skin on L foot. Reports increased pain, discharge, and swelling at this time. Associated with fever an chills. He saw his primary care doctor was has some antibiotics ( cephalexin) which he took for a week without any relief. # Acute left hallux abscess/cellulitis. - status post incision and drainage at bedside by podiatry - plan for OR today for washout and debridement of left hallux abscess wound. - appreciate podiatry consult. will f/u w/ recs - c/w IV Vanco and Clinda. - f/u pending cultures. Dispo: 1-2 days pending cultures results and Podiatry recs VTE Prophylaxis: Sub-Q Heparin (Unfractionated) VTE Mechanical Devices: Intermittant Pneumatic CD Resuscitation Status: CPR: Attempt Resuscitation Francisco Campos Jun 08, 2016 17:56
--- NOTE | 2016-06-08 18:04 | PCM.PODPO ---
Podiatry Operative Report Date of Service: Jun 08, 2016 Date of Service Jun 08, 2016 Pre Operative Diagnosis Abscess cellulitis left hallux Post Operative Diagnosis Same as preoperative diagnoses Procedure Washout and debridement left hallux abscess Surgeon Surgeon: Fredy Abarca MD Assistants: None Indication for Procedure Abscess of left hallux Findings Minimal purulent drainage with intact extensor hallucis longus tendon Details of Procedure Patient was identified in the preoperative holding area. The operative comorbidities and allergies were identified and thoroughly discussed. Patient was transported into the operating room and placed on the operating room table in normal supine position. The patient was then prepped and draped in the normal aseptic technique. A preoperative left hallux blocks was given around the midshaft of the first metatarsal consisting of 10 mL of half percent Marcaine plain. A #15 blade was then utilized to extend his incision and drainage incision site directly in the midline of the left hallux proximally an additional 2 cm. A Metzenbaum scissor was utilized to perform subcutaneous dissection into all areas of the abscess site. Compression noted a minimal amount of additional purulent drainage. The Metzenbaum scissor was then utilized to perform local debridement of all necrotic and nonviable soft tissue which was noted to be centered around the site of ulceration. Inspection of the extensor hallucis longus tendon reveals intact tendon of normal color and integrity without signs of acute infection there is no exposed bone within the abscess. This wound was then copiously flushed with large amounts of normal saline. Partial incision closure was performed utilizing number 3. 0 Prolene leaving the original ulceration site of incision and drainage open which was then packed with 1/4 inch iodoform packing gauze. The wound was then dressed with Adaptic and a dry sterile gauze dressing consisting of 4 x 4 gauze Kerlix and a minimally compressive Floyd bandage. The patient was awoken by anesthesia. No complications occurred during this procedure. Grafts, Implants: None Complications There were no periprocedural complications identified. Condition Stable Anesthetic Administered: MAC Catheters: None Output, Estimated Blood Loss: 10 Blood Admin during surgery: No Surgical Cast or Splint: None Surgical Specimen Removed: No Specimen sent to Pathology: No Post Operative Plan Advance diet as tolerated Keep dressing clean dry and intact Restart inpatient medications per hospitalist service recommendation Partial weight-bearing to left heel only Transfer back to floors when stable Podiatry will follow daily Patient will likely be stable for discharge to outpatient therapy in 24-48 hrs. Edwin Landeros DPM Jun 08, 2016 18:04
--- NOTE | 2016-06-08 18:12 | PCM.ANEP2 ---
Post Anesthesia Evaluation ASA/CMS Post Anesthesia VS in Patient's Normal Range?: Yes Resp Stable; Airway Patent?: Yes CV Function & Hydration Stable: Yes Mental Status Recovered?: Yes Pain control Satisfactory?: Yes N/V Control Satisfactory?: Yes Ursula Angel MD Jun 08, 2016 18:12
--- NOTE | 2016-06-08 18:12 | PCM.ANEP1 ---
Post Anesthesia Phase 1 PACU Phase 1 Assessment Date of Service: Jun 08, 2016 Vital Signs Vital Signs Date Time Temp Pulse Resp B/P Pulse Ox O2 Delivery O2 Flow Rate FiO2 06/08/16 17:59 36.2 72 19 113/78 96 Room Air 06/08/16 13:58 36.6 76 18 117/73 99 Room Air Anesthetic Administered: MAC Level of Alertness: Awake, talking BINGHAM's with Equal Strength: Yes Pain: No (within an acceptable range) Pain Scale Score: 0 Nausea or Vomiting: No Oxygen Delivery: Room Air Ursula Angel MD Jun 08, 2016 18:12
--- NOTE | 2016-06-08 18:51 | NUR ---
OR SURGERY Patient left for left foot repacking in OR at 1645 and returned at 1830. Patient denies pain at this time, is oriented and awaiting dinner. Left foot was repacked and dressing, es wrap, and c/d/i.
[2016-06-08] MEDS: ETODOLAC 300 MG PO SCH (20:30)
[2016-06-08] MEDS ORDERED: Albuterol 2.5 mg/3 mL Inhalation Solution NEB PRN (21:20)
[2016-06-08] MEDS: Albuterol 2.5 mg/3 mL Inhalation Solution NEB PRN (22:05)
[2016-06-09 00:38] VITALS: BP 108/63; PULSE 77; RESP 18; O2SAT 95
[2016-06-09] MEDS: oxyCODONE-Acetamin 5-325 mg Tablet PO PRN ×5 (00:49→21:05)
[2016-06-09] MEDS: Vancomycin Inj 1,000 MG in IV Premix 1 EACH IV SCH ×2 (00:49→13:02)
--- NOTE | 2016-06-09 03:19 | NUR ---
Activity/pain Pt reporting pain in left foot up to 8/10 and started off with Flexeril and Percocet per eMAR at the beginning of the shift. Pt needed Tordal 15mg IV for breakthrough pain and reported this to "take the edge off." Left foot wrapped with ROSE dressing, minimal serosanguineous drainage on top of foot. Pt tolerated dinner without nausea. Requested prune juice to help him have a BM (last one was 3 days ago). Pt also takes albuterol inhaler at home and requested to have a neb tx to be able to better clear secretions (pt has recently quit smoking since coming to hospital). Continue close monitoring.
[2016-06-09 05:21] VITALS: BP 100/64; PULSE 63; RESP 16; O2SAT 94
[2016-06-09] MEDS: Vancomycin Dose per Pharmacist XX SCH (08:30)
[2016-06-09] MEDS: ETODOLAC 300 MG PO SCH ×2 (08:30→20:30)
[2016-06-09] MEDS ORDERED: 0.9% Sodium Chloride 100 ML ONE (09:00)
[2016-06-09] MEDS: Heparin 5,000 Unit/mL Inj SUBQ SCH ×2 (09:04→21:03)
[2016-06-09] MEDS: Clindamycin Inj 600 MG in IV Premix 1 EACH IV SCH ×3 (09:08→23:28)
[2016-06-09 09:36] LABS: Mean Corpuscular Hemoglobin 30.4 pg (27.0-35.0); Mean Corpuscular Volume 91.4 fL (81-100)
[2016-06-09 10:57] VITALS: PULSE 71; RESP 16; O2SAT 97
[2016-06-09 11:49] VITALS: PULSE 77; RESP 20; O2SAT 94
[2016-06-09] MEDS: Albuterol 2.5 mg/3 mL Inhalation Solution NEB PRN (11:49)
--- NOTE | 2016-06-09 12:53 | PCM.PNPOD ---
Subjective Date of Service: Jun 09, 2016 Date of Service: Jun 09, 2016 Visit Information: Reason for Visit Celulitis Surgery/Surgery Date Post-Op Day # 1 Date of Admission: Jun 06, 2016 at 13:04 Hospital Day #4 Subjective: 55-year-old nondiabetic male day 1 status post incision and drainage of the left hallux. Patient denies any new issues or complaints overnight he states that his pain has subsided significantly. Postop General: No Complaints Gastrointestinal: Good Appetite Pain Management: PO Objective Vital Sign - Last Date Time Temp Pulse Resp B/P Pulse Ox O2 Delivery O2 Flow Rate FiO2 06/09/16 11:49 77 20 94 Room Air 06/09/16 05:21 36.6 100/64 Intake and Output 06/08/16 06/08/16 06/09/16 Cumulative From/Thru 15:00 23:00 07:00 06/06/16 11:05 - 06/09/16 06:18 Intake Total 70 ml 575 ml 1147 ml 5217 ml Output Total 720 ml 1000 ml 6670 ml Balance 70 ml -145 ml 147 ml -1453 ml Intake Oral 250 ml 872 ml 3893 ml IV Total 70 ml 325 ml 275 ml 1324 ml Output Urine Total 700 ml 1000 ml 6650 ml Estimated Blood Loss 20 ml 20 ml # Voids 1 2 # Bowel Movements 0 Result Diagram: 06/09/16 0931 06/06/16 1122 Lab Test 06/06/16 11:22 06/08/16 00:00 06/09/16 09:31 Neutrophils (%) (Auto) 70.4% (40-74) Lymphocytes (%) (Auto) 15.0% (14-46) Monocytes (%) (Auto) 10.3% (4-12) Eosinophils (%) (Auto) 3.3% (0-5) Basophils (%) (Auto) 0.4% (0-3) Prothrombin Time 10.2sec (8.1-12.5) Prothromb Time International Ratio 0.95ratio Activated Partial Thromboplast Time 34.0sec (22.8-33.0) Sodium Level 135mEq/L (134-144) Potassium Level 4.2mEq/L (3.5-5.2) Chloride Level 101mEq/L (97-108) Carbon Dioxide Level 21mmol/L (18-29) Blood Urea Nitrogen 10mg/dL (6-24) Creatinine 1.14mg/dL (0.76-1.27) Estimat Glomerular Filtration Rate 71mL/min (>59) Glucose Level 97mg/dL (60-99) Hemoglobin A1c 5.4% (4.8-5.6) Lactic Acid Level 1.4mmol/L (0.4-2.0) Calcium Level 8.4mg/dL (8.5-10.1) Total Bilirubin 0.5mg/dL (0.0-1.2) Aspartate Amino Transf (AST/SGOT) 17U/L (0-50) Alanine Aminotransferase (ALT/SGPT) 15U/L (0-44) Alkaline Phosphatase 67U/L (25-150) Total Protein 7.1g/dL (6.4-8.4) Albumin 3.5g/dL (3.4-5.0) Vancomycin Level Trough 9.9mcg/mL White Blood Count 7.5th/mm3 (3.8-10.1) Red Blood Count 5.60mil/mm3 (4.40-5.80) Hemoglobin 17.0g/dL (13.8-17.2) Hematocrit 51.2% (41.0-50.0) Mean Corpuscular Volume 91.4fL (81-100) Mean Corpuscular Hemoglobin 30.4pg (27.0-35.0) Mean Corpuscular Hemoglobin Concent 33.2% (32.0-37.0) Red Cell Distribution Width 13.3% (12.3-15.4) Platelet Count 422bil/L (150-400) Exam General: Alert, Oriented X3, Cooperative, No Acute Distress Lower Extremities: Left: Edema localized Extremity warm Lower Extremity Pulses: Palpable: Left Dorsalis Pedis Left Posterior Tibal Postop Sensory Motor: Distal Motor Intact, Motor 5/5 Podiatry WOUND : Wound Location/Description Left hallux dorsal IPJ abscess incision is well coapted with the central portion of the incision remaining open with packing gauze with a minimal amount of purulent drainage noted. Erythema has decreased significantly in both total area and overall intensity. There is no malodor. Mild serosanguineous drainage is noted. Retention sutures are intact and in place along the remainder of the dorsal incision. Interdigital maceration of the left fourth webspace without open wound Surgical Cast or Splint: None Assessment & Plan Impression Stable status post incision and drainage of left hallux abscess positive for MRSA, tinea pedis of the left fourth webspace Problems: Plan Packing gauze removed today and the left dorsal hallux abscess site was copiously flushed with large amounts of normal saline. One quarter-inch iodoform packing gauze was replaced into the wound and covered with Betadine soaked 4 x 4 gauze and Kerlix. Betadine soaked gauze was placed interdigitally to the left fourth web space to relieve some mild maceration tissue associated with local tinea pedis infection. Suggest infectious disease consultation for final antibiotic recommendations, cultures have returned MRSA infection, no bone exposure was noted and the extensor hallucis longus tendon appeared uninfected at the time of incision and drainage in the operating room however this was quite a large abscess in this patient will likely require several weeks of antibiotic therapy. Furthermore this patient's history of IV drug abuse complicates any potential plans for discharge with PICC line. Partial weightbearing to the left heel Patient is stable for discharge once final antibiotic recommendations have been made per podiatry standpoint this patient will require follow-up within 24-48 hours of discharge either at [facility] office or in the wound care center it upon discharge this patient is to leave his dressing clean dry and intact Podiatry will continue to follow daily VTE Prophylaxis: Sub-Q Heparin (Unfractionated) Edwin Landeros DPM Jun 09, 2016 12:53
--- NOTE | 2016-06-09 14:39 | NUR ---
Social Work- Readiness for Discharge Data: EMR Reviewed. Pt is on day 3 of hospitalization for cellulitis. Pt is not medically stable, anticipate 1-2 more days pending cultures and recommendations from Podiatry. SW spoke with pt at bedside to confirm discharge plan. SW to continue to follow for any wound care needs. Pt to discharge home with friend to transport via POV. No anticipated discharge needs identified at this time. Assessment: Pt who is independent at baseline. Plan: Anticipated discharge home with friend to transport via POV when medically ready. SW to continue to follow for any wound care needs. No other discharge needs identified at this time. NANCY Guaman
[2016-06-09 15:47] VITALS: BP 117/72; PULSE 80; RESP 18; O2SAT 94
--- NOTE | 2016-06-09 16:26 | NUR ---
spiritual care: follow/pt request for bible provided bible; short conversational visit as pt reflected on medical progress and his hopefulness for return to normal life.
--- NOTE | 2016-06-09 16:38 | NUR ---
Right Finger Pt has wound on right pointer finger. Wound care has addressed the wound and suggested the pt have surgery look at it. I have dressed the wound twice today. MD aware. Will continue to monitor.
--- NOTE | 2016-06-09 17:15 | PCM.PNMED ---
Subjective Date of Service Jun 09, 2016 Subjective denies any new issues/complaints Exam Vital Signs Vital Sign - Last Date Time Temp Pulse Resp B/P Pulse Ox O2 Delivery O2 Flow Rate FiO2 06/09/16 15:47 36.6 80 18 117/72 94 Room Air Intake and Output 06/08/16 06/08/16 06/09/16 Cumulative From/Thru 15:00 23:00 07:00 06/06/16 11:05 - 06/09/16 06:18 Intake Total 70 ml 575 ml 1147 ml 5217 ml Output Total 720 ml 1000 ml 6670 ml Balance 70 ml -145 ml 147 ml -1453 ml Intake Oral 250 ml 872 ml 3893 ml IV Total 70 ml 325 ml 275 ml 1324 ml Output Urine Total 700 ml 1000 ml 6650 ml Estimated Blood Loss 20 ml 20 ml # Voids 1 2 # Bowel Movements 0 Exam General: Alert, Cooperative, No Acute Distress Head: Normal Eyes: Scleral Anicteric Nose: Mucous Membr Moist/[place] Mouth: Mucous Membr Moist/[place] Neck: Supple Chest & Lungs: Chest Wall Normal, Clear to auscultation bilat Cardiovascular: Regular Rate/Rhythm Abdomen: Non-tender, Non-distended, Normoactive bowel tones, Soft Extremities: No cyanosis/clubbing/edema bilat. right index finger in dressing Skin: Other (left feet in dressing) Neurological: Grossly Neurologically Intact, Normal Speech IVs and Medications Medications Reviewed: Medications were reviewed in detail Lab and Diagnostics Result Diagram: 06/09/16 0931 06/06/16 1122 X-Rays, CTs and MRIs First digit soft tissue prominence which could be consistent with given history of abscess. No visualized underlying osseous abnormality Assessment & Plan 55 year old male with no significant past medical history who came to the emergency department via EMS complaining of left foot rash and pain that began 1 week ago. Patient stated [facility] [employer] caused irritation to skin on L foot. Reports increased pain, discharge, and swelling at this time. Associated with fever an chills. He saw his primary care doctor was has some antibiotics ( cephalexin) which he took for a week without any relief. # Acute left hallux abscess/cellulitis. - status post incision and drainage at bedside by podiatry - appreciate podiatry consult. will f/u w/ recs - wound culture growing MRSA - c/w IV Vanco - ID consulted. will f/u w/ recs # right index finger ulcer. poa - c/w wound care - consider ortho consult in am Dispo: 1-2 days VTE Prophylaxis: Sub-Q Heparin (Unfractionated) VTE Mechanical Devices: Intermittant Pneumatic CD Resuscitation Status: CPR: Attempt Resuscitation Francisco Campos Jun 09, 2016 17:15
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
[2016-06-09 20:04] VITALS: BP 109/68; PULSE 84; RESP 18; O2SAT 94
--- NOTE | 2016-06-09 20:41 | NUR ---
Right finger The patient has a wound on his right pointer finger. He has been picking skin off of it and soaking it in peroxide per his request. Primary RN instructed me to apply antibiotic ointment to his finger and cover it with the band aid. Will continue to monitor.
[2016-06-09] MEDS ORDERED: 0.9% Sodium Chloride 250 ML ONE (21:00)
[2016-06-10] MEDS: Vancomycin Inj 1,000 MG in IV Premix 1 EACH IV SCH ×2 (00:17→13:00)
[2016-06-10] MEDS: oxyCODONE-Acetamin 5-325 mg Tablet PO PRN ×4 (03:40→19:52)
[2016-06-10 04:48] VITALS: BP 110/71; PULSE 74; RESP 20; O2SAT 95
[2016-06-10 07:52] VITALS: BP 140/85; PULSE 60; RESP 20; O2SAT 94
[2016-06-10] MEDS: ETODOLAC 300 MG PO SCH ×2 (08:30→20:30)
[2016-06-10] MEDS: Vancomycin Dose per Pharmacist XX SCH (08:30)
[2016-06-10] MEDS: Clindamycin Inj 600 MG in IV Premix 1 EACH IV SCH ×3 (09:19→23:11)
[2016-06-10] MEDS: Heparin 5,000 Unit/mL Inj SUBQ SCH ×2 (09:23→19:54)
--- NOTE | 2016-06-10 09:58 | PCM.CONORT ---
Subjective Date of Surgery: Jun 10, 2016 Surgeon Admitting Provider:Fredy Abarca MD Attending Provider:Fredy Abarca MD Primary Care Physician:Rae Salcedo MD Orthopedic surgeon: Brian Smith M.D. 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 He reports injuring the tip of his right index finger approximately 2 weeks ago taking down a wooden fence. He accidentally stuck the tip of his right index finger with a wood splinter which he subsequently removed. The patient then reports cleaning out a Box the same day. Within a few days of the incident the patient began to experience pain and swelling in his right index fingertip. The patient also developed a left great toe infection for which he sought medical advice approximately a week prior to admission. He was started on Keflex. Unfortunately the patient's great toe infection progressed. His right index finger tip pain and swelling progressed at a slower rate. The patient denies any fevers or chills. The patient presented and was admitted to [facility] 06/06/2016 for a left great toe infection for which he underwent debridement performed by the Podiatry service. The patient was started on vancomycin and clindamycin for a MRSA infection. The patient's right index fingertip continued to swell. The patient performed a self debridement and decompression procedure in his room 06/09/2016 with hydrogen peroxide. The patient reports expressing approximately 2-3 mL of serosanguineous material. Reports fingertip has felt better since the decompression. Wound care consult was asked to see the patient's right index finger for wound care. Orthopedic surgical consultation has been requested. Allergy Allergies: Coded Allergies: penicillin (Verified Allergy, Intermediate, rash hives, 12/08/14) Medications Acetaminophen (Acetaminophen) 325 Mg Capsule 650 MG PO PRN For Pain (Reported) Last Taken: Unknown Dose on 06/06/16 0900 Albuterol HFA (Proair HFA) 8.5 Gm Hfa.aer.ad 2 PUFFS INHALATION Q4H (Reported) Last Taken: Unknown Dose on 06/05/16 2100 Albuterol Sulfate (Ventolin HFA Inhaler) 200 Puff/18 Gm Inhaler 1 PUFF INH Q4 PRN PRN For Wheezing (Reported) Last Taken: Unknown Dose on Unknown Date & Time Ascorbic Acid (Vitamin C) 100 Mg Tablet 100 MG PO (Reported) Last Taken: Unknown Dose on Unknown Date & Time Calcium Carbonate/Mag Hydrox (Mi-Acid Ds Tablet) 1 Each Tab.chew 2 EACH PO PRN For Indigestion ( Reported) Last Taken: Unknown Dose on 06/06/16899 Cephalexin (Cephalexin) 500 Mg Tablet 500 MG PO QID Prescribed by: KRISTIAN MORALES Last Taken: Unknown Dose on Unknown Date & Time Clindamycin (Clindamycin) 300 Mg Capsule 300 MG PO QID (Reported) Last Taken: Unknown Dose on 06/06/16899 Clotrimazole 1% (Clotrimazole 1%) 30 Ml Solution 30 ML TOPICAL BID (Reported) Last Taken: Unknown Dose on Unknown Date & Time Cyclobenzaprine ( Cyclobenzaprine) 10 Mg Tablet 10 MG PO BID PRN PRN Spasm (Reported) Last Taken: Unknown Dose on 06/06/16899 Etodolac (Etodolac) 300 Mg Capsule 300 MG PO BID (Reported) Last Taken: Unknown Dose on 06/06/16899 Fluticasone Propionate (Flonase Allergy Relief) 50 Mcg/Actuation [place].susp 9.9 ML NS PRN For Congestion ( Reported) Last Taken: Unknown Dose on Unknown Date & Time Gabapentin (Gabapentin) 300 Mg Capsule 600 MG PO BID (Reported) Last Taken: Unknown Dose on 06/06/16899 Loratadine (Claritin) 10 Mg Capsule 10 MG PO DAILY (Reported) Last Taken: Unknown Dose on 06/06/16899 Multivitamin (Multi Vitamin Daily) 1 Each Tablet 1 EACH PO DAILY (Reported) Last Taken: Unknown Dose on 06/06/16899 Naproxen (Naproxen) 500 Mg Tablet.dr 500 MG PO BID PRN PRN For Pain Prescribed by: KRISTIAN MORALES Last Taken: Unknown Dose on Unknown Date & Time Sulfamethoxazole/Trimeth 800 -160 mg (Bactrim DS 800-160 mg) 1 Each Tablet 2 TABLET PO BID (Reported) Last Taken: Unknown Dose on 06/06/16 09 Discontinued Medications Ranitidine (Ranitidine) 150 Mg Capsule 150 MG PO DAILY PRN PRN For Dyspepsia or Heartburn (Reported) History History of ENT Problems?: No HEENT History: Denies:: Cataracts Dysphagia Glaucoma Sinus Problem Denture Type: Full- Upper Hx of Heart Problems?: No Cardiovascular History: Denies:: Cardiac Surgery Chest Pain Congestive Heart Failure Edema Heart Murmur Hypertension Irregular Heartbeat Pacemaker Thrombophlebitis Hx of Respiratory Problem?: Yes Respiratory History: Positive for:: Pneumonia (Few times) Denies:: Asthma COPD Chest Surgery Dyspnea Emphysema Hemoptysis Tuberculosis Other Resp Pertinent History: Patient reports yearly bronchitis. Hx Neurologic Problems?: No Neurological History: Denies:: Alzheimer's Disease CVA Dementia Dizziness Headaches Parkinson's Disease Seizures Hx of GI Problems?: No Gastrointestinal History: Positive for:: Gastroesphageal Reflux Denies:: Diverticulitis Gastrointestinal Bleeding Heartburn Hepatitis Hiatal Hernia Rectal Bleeding Hx of Problems?: No Genitourinary History: Denies:: HX of Hemodialysis Kidney Stones Urinary Tract Infection HX of Peritoneal Dialysis: No Male Hx: Denies:: Prostate Problems Scrotal Mass Testicular Surgery Hx Musculoskeletal Problems?: No Musculoskeletal History: Positive for:: Back Injury Denies:: Joint Replacement Musculoskeletal Trauma Hx of Psycho/Social Problems?: No Psycho Social History: Positive for:: Hx Depression Denies:: Anxiety Bipolar Disorder Suicide Attempt Hx Surgeries?: No Other History: Denies:: Cancer (Patient states doctor recently informed of tumor in abdomen) Hospitalization Thyroid Disease History Blood Transfusions: Positive for:: Accept Blood Products? Denies:: Blood Transfuse Reaction Blood Transfusions Hx Diabetes: No Hx Alcohol Use: Yes (More than 25 years ago)Hx Substance Use: Yes (Last used 7 years ago) Smoking Status: Current Every Day Smoker (Patient has a near 45 year pack smoking) Have You Smoked inLast 12 mo: YesApprox How Many Cigarettes/day: 10 Objective Exam Objective Imaging Patient Name: RUBEN CALLES MR#: [id number] Location: [facility] Ordering Phys: Francisco Campos MD Date of Service: 06/10/16 0808 PROCEDURE: X-RAY RIGHT HAND, MINIMUM THREE VIEWS ([id number]) INDICATIONS: right index finger ulcer TECHNIQUE: 3 views of the hand(s) acquired. COMPARISON: None. FINDINGS: Bones: No fractures or dislocations. Carpal bones are normally aligned. No suspicious bony lesions. Soft tissues: No suspicious soft tissue calcifications. There is soft tissue swelling in the distal second finger. No opaque foreign body. IMPRESSION: Soft tissue swelling in the distal second finger. No opaque foreign body. No bony erosion. Dictated by: Manolo Shelby M.D. on 06/10/2016 at 10:24 Approved by: Manolo Shelby M.D. on 06/10/2016 at 10:25 Vital Signs & I/O Vital Sign- Last 8 Hours Date Time Temp Pulse Resp B/P Pulse Ox O2 Delivery O2 Flow Rate FiO2 06/10/16 07:52 36.4 60 20 140/85 94 Room Air 06/10/16 04:48 36.4 74 20 110/71 95 Room Air Intake and Output- Last 8 Hour 06/10/16 Cumulative From/Thru 07:00 06/06/16 11:05 - 06/10/16 06:17 Intake Total 1000 ml 8282 ml Output Total 800 ml 9370 ml Balance 200 ml -1088 ml Intake Oral 1000 ml 6879 ml IV Total 1403 ml Output Urine Total 800 ml 9350 ml Estimated Blood Loss 20 ml # Voids 1 7 # Bowel Movements 0 1 Lab & Micro Results Microbiology 06/06/16 Blood Culture - Preliminary, Resulted No growth at 2 days; culture examined... 06/06/16 Gram Stain - Final, Resulted 06/06/16 Culture & Sensitivity - Preliminary, Resulted Methicillin Resistant S Aureus 06/06/16 Anaerobic Culture - Preliminary, Resulted Result Diagram: 06/09/16 0931 06/06/16 1122 Review of Systems: Constitutional: Negative, except as otherwise mentioned in the history above. Ophthalmologic: Negative, except as otherwise mentioned in the history above. Cardiovascular: Negative, except as otherwise mentioned in the history above. Respiratory: Negative, except as otherwise mentioned in the history above. Gastrointestinal: Negative, except as otherwise mentioned in the history above. Genitourinary: Negative, except as otherwise mentioned in the history above. Musculoskeletal: Negative, except as otherwise mentioned in the history above. Neurological: Negative, except as otherwise mentioned in the history above. Psychiatric: Negative, except as otherwise mentioned in the history above. Hematologic/Lymphatic: Negative, except as otherwise mentioned in the history above. Allergic/Immunologic: Negative, except as otherwise mentioned in the history above. H&P Surgical Exam Exam General: Alert, Cooperative, No Acute Distress Musculoskeletal: Right index finger. Mild to moderate finger swelling. Volar erythema and denuded skin of the distal half of the distal phalanx. A 5 x 5 mm ovoid region with darkened dermis and dried and wound edge near the tip. No palpable fluctuance or purulent material expressed. Mild tenderness to palpation. Fingernail is intact. No tenderness to palpation or stress of the DIP joint where motion is near full. Remaining digit is unremarkable. Neurovascular: Capillary refill of the fingertip intact. Sensation to light touch mildly diminished. Remaining median nerve sensation intact to light touch H&P Preop Plan Impression Right index finger felon. Improved following patient's decompression and IV antibiotic therapy. Problems: Risks & Benefits * We have reviewed the risks and benefits as well as the alternatives to surgery. All questions were answered to the patient's satisfaction and a counseling note to that effect. The patient has provided informed consent. * I have counseled the patient regarding the deleterious effects that smoking during the perioperative period can have upon wound healing, infection rates, and the overall rate of complications. Plan The patient's right index fingertip felon infection appears to be improving with treatment to date. Antibiotic therapy should continue as recommended by Dr. Sow. Wound care team may resume appropriate dressings and care from this point. If there is any significant increase in swelling, pain or drainage , please notify orthopedic team for reassessment. copies to: Rae Salcedo MD; Brian Smith MD, Michael G.E MD Jun 10, 2016 09:58
--- NOTE | 2016-06-10 10:27 | DRSVH ---
PROCEDURE: X-RAY RIGHT HAND, MINIMUM THREE VIEWS ([id number]) INDICATIONS: right index finger ulcer TECHNIQUE: 3 views of the hand(s) acquired. COMPARISON: None. FINDINGS: Bones: No fractures or dislocations. Carpal bones are normally aligned. No suspicious bony lesions . Soft tissues: No suspicious soft tissue calcifications. There is soft tissue swelling in the distal second finger. No opaque foreign body. IMPRESSION: Soft tissue swelling in the distal second finger. No opaque foreign body. No bony erosion . Dictated by: Manolo Shelby M.D. on 06/10/2016 at 10:24 Approved by: Manolo Shelby M.D. on 06/10/2016 at 10:25
--- NOTE | 2016-06-10 13:47 | PCM.PNPOD ---
Subjective Date of Service: Jun 10, 2016 Visit Information: Reason for Visit Celulitis Surgery/Surgery Date I&D abscess, left hallux, 06/08/16 Post-Op Day # 2 Date of Admission: Jun 06, 2016 at 13:04 Subjective: Patient is comfortable in bed, having his lunch. No new complaints. Pain Management: No or Minimal Pain Objective Vital Sign - Last Date Time Temp Pulse Resp B/P Pulse Ox O2 Delivery O2 Flow Rate FiO2 06/10/16 07:52 36.4 60 20 140/85 94 Room Air Intake and Output 06/09/16 06/09/16 06/10/16 Cumulative From/Thru 15:00 23:00 07:00 06/06/16 11:05 - 06/10/16 06:17 Intake Total 79 ml 1986 ml 1000 ml 8282 ml Output Total 1900 ml 800 ml 9370 ml Balance 79 ml 86 ml 200 ml -1088 ml Intake Oral 1986 ml 1000 ml 6879 ml IV Total 79 ml 1403 ml Output Urine Total 1900 ml 800 ml 9350 ml Estimated Blood Loss 20 ml # Voids 4 1 7 # Bowel Movements 1 0 1 Result Diagram: 06/09/16 0931 06/06/16 1122 Lab Test 06/06/16 11:22 06/08/16 00:00 06/09/16 09:31 Neutrophils (%) (Auto) 70.4% (40-74) Lymphocytes (%) (Auto) 15.0% (14-46) Monocytes (%) (Auto) 10.3% (4-12) Eosinophils (%) (Auto) 3.3% (0-5) Basophils (%) (Auto) 0.4% (0-3) Prothrombin Time 10.2sec (8.1-12.5) Prothromb Time International Ratio 0.95ratio Activated Partial Thromboplast Time 34.0sec (22.8-33.0) Sodium Level 135mEq/L (134-144) Potassium Level 4.2mEq/L (3.5-5.2) Chloride Level 101mEq/L (97-108) Carbon Dioxide Level 21mmol/L (18-29) Blood Urea Nitrogen 10mg/dL (6-24) Creatinine 1.14mg/dL (0.76-1.27) Estimat Glomerular Filtration Rate 71mL/min (>59) Glucose Level 97mg/dL (60-99) Hemoglobin A1c 5.4% (4.8-5.6) Lactic Acid Level 1.4mmol/L (0.4-2.0) Calcium Level 8.4mg/dL (8.5-10.1) Total Bilirubin 0.5mg/dL (0.0-1.2) Aspartate Amino Transf (AST/SGOT) 17U/L (0-50) Alanine Aminotransferase (ALT/SGPT) 15U/L (0-44) Alkaline Phosphatase 67U/L (25-150) Total Protein 7.1g/dL (6.4-8.4) Albumin 3.5g/dL (3.4-5.0) Vancomycin Level Trough 9.9mcg/mL White Blood Count 7.5th/mm3 (3.8-10.1) Red Blood Count 5.60mil/mm3 (4.40-5.80) Hemoglobin 17.0g/dL (13.8-17.2) Hematocrit 51.2% (41.0-50.0) Mean Corpuscular Volume 91.4fL (81-100) Mean Corpuscular Hemoglobin 30.4pg (27.0-35.0) Mean Corpuscular Hemoglobin Concent 33.2% (32.0-37.0) Red Cell Distribution Width 13.3% (12.3-15.4) Platelet Count 422bil/L (150-400) Exam General: Alert, Oriented X3, Cooperative, No Acute Distress Lower Extremities: Left: Edema localized (resolving well) Bilateral: Extremity warm (resolving) Lower Extremity Pulses: Palpable: Left Dorsalis Pedis Left Posterior Tibal Right Dorsalis Pedis Right Posterior Tibal Postop Sensory Motor: Distal Motor Intact, Motor 5/5 Podiatry WOUND : Wound Location/Description Open dorsal left hallux wound with granulating base, undermines throughout by about 1-1.5cm. Extensor tendon visible and viable. Left 4th and right 4th and 5th webspace fissure appears stable. Maceration present. Dressing & Drainage Status: Changed, Drainage (moderate serosanguineous) Surgical Cast or Splint: None Assessment & Plan Problems: (1) Foot ulcer with necrosis of muscle Qualifiers: Laterality: left Qualified Code: L97.523 - Non-pressure chronic ulcer of other part of left foot with necrosis of muscle Plan: I irrigated and packed the wound with Iodoform, dressed with saline- moistened gauze and Kerlix, Floyd wrap. Daily changes of the same will be necessary. OK to discharge on PO antibiotics once determined by Dr. Sow. Close follow up next [facility]. Status: Acute ICD Code: L97.503 VTE Prophylaxis: Sub-Q Heparin (Unfractionated) Katherin Helm DPM Jun 10, 2016 13:47
--- NOTE | 2016-06-10 15:58 | PCM.PNMED ---
Subjective Date of Service Jun 10, 2016 Subjective denies any new issues/complaints Exam Vital Signs Vital Sign - Last Date Time Temp Pulse Resp B/P Pulse Ox O2 Delivery O2 Flow Rate FiO2 06/10/16 07:52 36.4 60 20 140/85 94 Room Air Intake and Output 06/09/16 06/09/16 06/10/16 Cumulative From/Thru 15:00 23:00 07:00 06/06/16 11:05 - 06/10/16 06:17 Intake Total 79 ml 1986 ml 1000 ml 8282 ml Output Total 1900 ml 800 ml 9370 ml Balance 79 ml 86 ml 200 ml -1088 ml Intake Oral 1986 ml 1000 ml 6879 ml IV Total 79 ml 1403 ml Output Urine Total 1900 ml 800 ml 9350 ml Estimated Blood Loss 20 ml # Voids 4 1 7 # Bowel Movements 1 0 1 Exam General: Alert, Cooperative, No Acute Distress Head: Normal Eyes: Scleral Anicteric Nose: Mucous Membr Moist/[place] Mouth: Mucous Membr Moist/[place] Neck: Supple Chest & Lungs: Chest Wall Normal, Clear to auscultation bilat Cardiovascular: Regular Rate/Rhythm Abdomen: Non-tender, Non-distended, Normoactive bowel tones, Soft Extremities: No cyanosis/clubbing/edema bilat. right index finger in dressing Skin: Other (left feet in dressing) Neurological: Grossly Neurologically Intact, Normal Speech IVs and Medications Medications Reviewed: Medications were reviewed in detail Lab and Diagnostics Result Diagram: 06/09/16 0931 06/06/16 1122 X-Rays, CTs and MRIs First digit soft tissue prominence which could be consistent with given history of abscess. No visualized underlying osseous abnormality Assessment & Plan 55 year old male with no significant past medical history who came to the emergency department via EMS complaining of left foot rash and pain that began 1 week ago. Patient stated a shoe he recently purchased at [employer] caused irritation to skin on L foot. Reports increased pain, discharge, and swelling at this time. Associated with fever an chills. He saw his primary care doctor was has some antibiotics ( cephalexin) which he took for a week without any relief. # Acute left hallux abscess/cellulitis. - status post incision and drainage at bedside by podiatry - appreciate podiatry consult. will f/u w/ recs - wound culture growing MRSA - appreciate ID consult. will f/u w/ recs - continue IV vancomycin and clindamycin until he is ready for discharge. - on d/c continue Clindamycin 300 q.i.d. with a plan to continue that and complete a full month of therapy from the date of his debridement. This would go through approximately July 06 and would require obviously about 100 or so tablets # right index finger ulcer. poa - c/w wound care - Ortho consulted today. appreciate input. will f/u w/r ecs # Hep C. chronic - f/u at [facility] Dispo: home in am if OK by consulting teams VTE Prophylaxis: Sub-Q Heparin (Unfractionated) VTE Mechanical Devices: Intermittant Pneumatic CD Resuscitation Status: CPR: Attempt Resuscitation Time spent 35 min Francisco Campos Jun 10, 2016 15:58
[2016-06-10 17:04] VITALS: BP 121/77; PULSE 87; RESP 18; O2SAT 93
--- NOTE | 2016-06-10 18:52 | NUR ---
Pain Patient pain level is decreasing. He is now able to go about 6 hours between pain rx. Understands possible plan to discharge tomorrow.
[2016-06-10 19:47] VITALS: BP 110/64; PULSE 76; RESP 18; O2SAT 94
[2016-06-11] MEDS: Vancomycin Inj 1,000 MG in IV Premix 1 EACH IV SCH (00:11)
--- NOTE | 2016-06-11 02:30 | NUR ---
PAIN CONTROL: During initial assessment pt. c/o surgical pain. Medicated with 1 Percocet, helpful. Pt.is pleasant and cooperative with care. Resting in bed through the night, ambulating to the bathroom independently to void. Reported 2 BMs day shift. A & O, vss. On going care.
[2016-06-11 04:04] VITALS: BP 113/72; PULSE 73; RESP 20; O2SAT 93
[2016-06-11] MEDS: oxyCODONE-Acetamin 5-325 mg Tablet PO PRN ×2 (04:18→09:14)
[2016-06-11 07:14] LABS: Magnesium 2.1 mg/dL (1.6-2.6)
[2016-06-11] MEDS: ETODOLAC 300 MG PO SCH (08:30)
[2016-06-11] MEDS ORDERED: 0.9% Sodium Chloride 250 ML ONE (09:07)
[2016-06-11] MEDS: Heparin 5,000 Unit/mL Inj SUBQ SCH (09:16)
[2016-06-11] MEDS: Clindamycin Inj 600 MG in IV Premix 1 EACH IV SCH (09:19)
[2016-06-11 10:49] VITALS: BP 115/80; PULSE 89; RESP 20; O2SAT 94
[2016-06-11] MEDS ORDERED: Vancomycin Serum Trough XX ONE (12:00)
[2016-06-11] MEDS ORDERED: CLIN-78 PO (12:06)
[2016-06-11] MEDS ORDERED: OXYC5TAB72 PO (12:06)
--- NOTE | 2016-06-11 12:19 | PCM.DIMED ---
Discharge Instructions Date of Service Jun 11, 2016 Dates of Hospitalization Jun 06, 2016 at 13:04 Discharge Diagnosis Discharge Diagnosis # Acute on chronic non-pressure ulcer and MRSA cellulitis/abscess of left hallux. present on admission. improving - status post incision and drainage at bedside by podiatry # Acute right index finger felon. present on admission. improving # Hep C. chronic Diet No restrictions Activity Other (Partial weightbearing to the left heel) Call your provider Fever or Chills, Shortness of breath, Bleeding, Vomitting, Excessive diarrhea Patient Instructions See immediate medical attention if any new or worsening signs or symptoms occur. Follow-up plan 1. Close follow up next week at [facility] 2. Followup with podiatry (Dr. Landeros) in 1-[address] [id number] 3. Followup with primary care provider in 7-10 days Follow-up Provider: Edwin Landeros DPM Provider: Rae Salcedo MD, Masoud Jun 11, 2016 12:18
--- NOTE | 2016-06-11 13:26 | NUR ---
Social Work Discharge: SW acknowledged order for discharge. SW met with patient at bedside to discuss discharge plan. Patient states residing with roommate upon discharge. Patient states having resolved discord with roommate and states that he plans to discharge back home upon discharge. Patient independent with needs at this time and denied any further discharge needs. Patient states friend to provide transport home upon discharge. SW to follow. PLAN: Home with roommate, pending clinical course. No anticipated discharge needs Roberto CRUZ
--- NOTE | 2016-06-11 13:48 | NUR ---
Discharge Pt discharged to home with friend. A&Ox3, BINGH[place], IV dc'd intact, VSS, Pain tolerable, Dressing to LLE CDI, Home meds retrieved from pharmacy and returned to pt, CareNotes and instructions provided on dc dx and new medications. Pt made aware of s/sx to seek medical attention for and the plan for followup appointments. No questions or concerns left unanswered. Pt wanting to walk off unit with crutches - ride was called per pt, waiting for ride in the room. Addendum: 06/11/16 at 1350 by MARIE KING RN Hard copy scripts provided to pt. Addendum: 06/11/16 at 1402 by MARIE KING RN ASSESS: Pt dressing to LLE CDI with kerlix/gauze and ROSE wrap in place. Between toes to right noted to be dry and cracked - no weeping noted. Pt Enc to CDB with assessment - lungs clear. Denied chest pain/SOB/N/V/Abd Pain/Numbness/tingling to hands/feet. Bandaid to Right index finger - CDI. Pt changed himself - stated serous with minimal blood drainage - soaked in hydrogen peroxide on own accord.
--- NOTE | 2016-06-11 17:33 | PCM.DC.MED ---
Discharge Summary Date of Service Jun 11, 2016 Dates of Hospitalization Date of Hospital Admission Jun 06, 2016 at 13:04 Date of Discharge: Jun 11, 2016 Providers: Admitting Physician: Fredy Abarca MD Primary Care Physician: Rae Salcedo MD Attending Physician: Fredy Abarca MD Diagnosis at Time of Discharge Diagnosis at Time of Discharge # Acute on chronic non-pressure ulcer and MRSA cellulitis/abscess of left hallux. present on admission. improving - status post incision and drainage at bedside by podiatry # Acute right index finger felon. present on admission. improving # Hep C. chronic Consultations 1. ID 2. Podiatry Procedures XRay, CTs & MRIs Date of Service: 06/06/16 1117 PROCEDURE: X-RAY TOES, TWO VIEWS IMPRESSION: First digit soft tissue prominence which could be consistent with given history of abscess. No visualized underlying osseous abnormality. Dictated by: Maureen Castellanos M.D. on 06/06/2016 at 11:36 Approved by: Maureen Castellanos M.D. on 06/06/2016 at 11:37 Date of Service: 06/10/16 0808 PROCEDURE: X-RAY RIGHT HAND, MINIMUM THREE VIEWS ([id number]) IMPRESSION: Soft tissue swelling in the distal second finger. No opaque foreign body. No bony erosion. Dictated by: Manolo Shelby M.D. on 06/10/2016 at 10:24 Approved by: Manolo Shelby M.D. on 06/10/2016 at 10:25 Brief History 55 year old male with no significant past medical history who came to the emergency department via EMS complaining of left foot rash and pain that began 1 week ago. Patient stated a shoe he recently purchased at [employer] caused irritation to skin on L foot. Reports increased pain, discharge, and swelling at this time. Associated with fever an chills. He saw his primary care doctor was has some antibiotics ( cephalexin) which he took for a week without any relief. Hospital Course # Acute left hallux abscess/cellulitis. - status post incision and drainage at bedside by podiatry - appreciate podiatry consult. will f/u w/ recs - wound culture growing MRSA - appreciate ID consult. will f/u w/ recs - continue IV vancomycin and clindamycin until he is ready for discharge. - on d/c continue Clindamycin 300 q.i.d. with a plan to continue that and complete a full month of therapy from the date of his debridement. This would go through approximately July 06 and would require obviously about 100 or so tablets # right index finger ulcer. poa - c/w wound care - Ortho consulted. appreciate input. - c/w wound care # Hep C. chronic - f/u at [facility] by day of d/c lungs CTA bilat. Exam Vital Signs (Last) Date Time Temp Pulse Resp B/P Pulse Ox O2 Delivery O2 Flow Rate FiO2 06/11/16 10:49 36.3 89 20 115/80 94 Room Air Test 06/06/16 11:22 06/08/16 00:00 06/09/16 09:31 06/11/16 06:25 Neutrophils (%) (Auto) 70.4% (40-74) Lymphocytes (%) (Auto) 15.0% (14-46) Monocytes (%) (Auto) 10.3% (4-12) Eosinophils (%) (Auto) 3.3% (0-5) Basophils (%) (Auto) 0.4% (0-3) Prothrombin Time 10.2sec (8.1-12.5) Prothromb Time International Ratio 0.95ratio Activated Partial Thromboplast Time 34.0sec (22.8-33.0) Hemoglobin A1c 5.4% (4.8-5.6) Lactic Acid Level 1.4mmol/L (0.4-2.0) Total Bilirubin 0.5mg/dL (0.0-1.2) Aspartate Amino Transf (AST/SGOT) 17U/L (0-50) Alanine Aminotransferase (ALT/SGPT) 15U/L (0-44) Alkaline Phosphatase 67U/L (25-150) Total Protein 7.1g/dL (6.4-8.4) Albumin 3.5g/dL (3.4-5.0) Vancomycin Level Trough 9.9mcg/mL White Blood Count 7.5th/mm3 (3.8-10.1) Red Blood Count 5.60mil/mm3 (4.40-5.80) Hemoglobin 17.0g/dL (13.8-17.2) Hematocrit 51.2% (41.0-50.0) Mean Corpuscular Volume 91.4fL (81-100) Mean Corpuscular Hemoglobin 30.4pg (27.0-35.0) Mean Corpuscular Hemoglobin Concent 33.2% (32.0-37.0) Red Cell Distribution Width 13.3% (12.3-15.4) Platelet Count 422bil/L (150-400) Sodium Level 136mEq/L (134-144) Potassium Level 5.1mEq/L (3.5-5.2) Chloride Level 99mEq/L (97-108) Carbon Dioxide Level 27mmol/L (18-29) Blood Urea Nitrogen 15mg/dL (6-24) Creatinine 1.15mg/dL (0.76-1.27) Estimat Glomerular Filtration Rate 70mL/min (>59) Glucose Level 102mg/dL (60-99) Calcium Level 9.2mg/dL (8.5-10.1) Magnesium Level 2.1mg/dL (1.6-2.6) Discharge Medications Discharge Medications Albuterol HFA (Proair HFA) 8.5 Gm Hfa.aer.ad 2 PUFFS INHALATION Q4H (Reported) Clindamycin (Clindamycin) 300 Mg Capsule 300 MG PO QID Prescribed by: STEPHON BRUCE MD Clotrimazole 1% (Clotrimazole 1%) 30 Ml Solution 30 ML TOPICAL BID (Reported) Etodolac (Etodolac) 300 Mg Capsule 300 MG PO BID (Reported) Gabapentin (Gabapentin) 300 Mg Capsule 600 MG PO BID (Reported) Loratadine (Claritin) 10 Mg Capsule 10 MG PO DAILY (Reported) Multivitamin (Multi Vitamin Daily) 1 Each Tablet 1 EACH PO DAILY (Reported) As needed Acetaminophen (Acetaminophen) 325 Mg Capsule 650 MG PO PRN For Pain (Reported) Albuterol Sulfate (Ventolin HFA Inhaler) 200 Puff/18 Gm Inhaler 1 PUFF INH Q4 PRN PRN For Wheezing (Reported) Calcium Carbonate/Mag Hydrox (Mi-Acid Ds Tablet) 1 Each Tab.chew 2 EACH PO PRN For Indigestion (Reported) Cyclobenzaprine (Cyclobenzaprine) 10 Mg Tablet 10 MG PO BID PRN PRN Spasm ( Reported) Fluticasone Propionate (Flonase Allergy Relief) 50 Mcg/Actuation [place].susp 9.9 ML NS PRN For Congestion (Reported) Naproxen (Naproxen) 500 Mg Tablet.dr 500 MG PO BID PRN PRN For Pain Prescribed by: KRISTIAN MORALES oxyCODONE (oxyCODONE) 5 Mg Tablet 5 MG PO Q4H PRN PRN For Pain Prescribed by: STEPHON BRUCE MD Miscellaneous Medications Ascorbic Acid (Vitamin C) 100 Mg Tablet 100 MG PO (Reported) Followup Plan Disposition: Home Follow-up plan 1. [facility] 2. Followup with podiatry (Dr. Landeros) in 1-[address] [address] 3. Followup with primary care provider in 7-10 days Discharge Diet: No restrictions Discharge Activity: Other Patient Instructions See immediate medical attention if any new or worsening signs or symptoms occur. Follow-up Provider: Edwin Landeros DPM Provider: Rae Salcedo MD Time spent 30 min copies to: Rae Salcedo MD; Edwin Landeros DPM, Masoud Jun 11, 2016 17:33
[2016-07-13] MEDS ORDERED: GUAI120L57 PO (15:26)
== END 2016-06-11 14:20 | disposition home or self-care (01) | DRG 603 ==
LOC: EDBD 10:57 → SED 10:57 → EDUNIT# 10:57 → OSC 13:04 → OBSVTOIN 13:04 → INTOOBSV 13:04
PROVIDERS: ADMIT Internal Medicine; ATTEND Internal Medicine
PROC: 0S9 Lower Joints, Drainage (ICD-10-PCS; principal; 2016-06-07)
PROC: 0S9 Lower Joints, Drainage (ICD-10-PCS; 2016-06-08)
DX: L03.116 Cellulitis of left lower limb (principal); K73.9 Chronic hepatitis, unspecified; L02.612 Cutaneous abscess of left foot; L97.503 Non-pressure chronic ulcer of other part of unspecified foot with necrosis of muscle; B95.62 Methicillin resistant Staphylococcus aureus infection as the cause of diseases classified elsewhere; E11.9 Type 2 diabetes mellitus without complications; L03.032 Cellulitis of left toe; L89.899 Pressure ulcer of other site, unspecified stage; F17.200 Nicotine dependence, unspecified, uncomplicated; Z59.0 Homelessness

== ENCOUNTER 2016-07-14 01:25 | Day surgery (SDC) | payer OTHER ==
[~2016-07-14 01:25] MED LIST changes: -CEPH500T PO; +CYCL10TA9 PO; +GUAI120L57 PO; -NAPR500T5 PO
[2016-07-14] MEDS ORDERED: Lactated Ringer's 1,000 ML IV ONE (06:00)
--- NOTE | 2016-07-14 07:26 | PCM.HPANE ---
Patient Data Surgeon Admitting Provider: Attending Provider:Fredy Horowitz MD Primary Care Physician:Rae Salcedo MD Other Provider:Rylee Lujaningham Anesthesia Reason for Visit Screening Ht/WT & BMI Body Mass Index Allergies Coded Allergies: penicillin (Verified Allergy, Intermediate, rash hives, 12/08/14) Past Anesthesia History Anesthesia History: Denies:: Anesthesia Reactions Diabetes History Hx Diabetes?: No MRSA MRSA: No Medications Reported Medications Guaifenesin/Codeine Phosphate (Codeine-Guaifen 10-100 mg/5 ml)120 Ml Frzrwe88 Ml PO 07/13/16 Cyclobenzaprine 10 Mg [place]45 Mg PO BID PRN Spasm 06/06/16 Discontinued Reported Medications Multivitamin (Multi Vitamin Daily)1 Each Tablet1 Each PO DAILY 30 Days Ref 0 06/06/16 Ascorbic Acid (Vitamin C)100 Mg Qcjkvo802 Mg PO 06/06/16 Albuterol HFA (Proair HFA)8.5 Gm Hfa.aer.ad2 Puffs INHALATION Q4H #1 INHALER 06/06/16 Clotrimazole 1% 30 Ml Zwaofwze64 Ml TOPICAL BID 06/06/16 Etodolac 300 Mg Qpgxnre282 Mg PO BID 06/06/16 Gabapentin 300 Mg Plrdcbk234 Mg PO BID Ref 0 06/06/16 Fluticasone Propionate (Flonase Allergy Relief)50 Mcg/Actuation [place].susp9.9 Ml NS PRN For Congestion 06/06/16 Loratadine (Claritin)10 Mg Qwvcrog09 Mg PO DAILY Ref 0 06/06/16 Calcium Carbonate/Mag Hydrox (Mi-Acid Ds Tablet)1 Each Tab.chew2 Each PO PRN For Indigestion 06/06/16 Albuterol Sulfate (Ventolin HFA Inhaler)200 Puff/18 Gm Inhaler1 Puff INH Q4 PRN For Wheezing #1 INHALER Ref 0 06/06/16 Acetaminophen 325 Mg Icxqmbx630 Mg PO PRN For Pain 06/06/16 Discontinued Scripts Clindamycin 300 Mg Pbchipk827 Mg PO QID 28 Days Ref 0 Prov:Francisco Campos 06/11/16 oxyCODONE 5 Mg Tablet5 Mg PO Q4H PRN For Pain #20 TABLET Ref 0 Prov:Francisco Campos 06/11/16 Naproxen 500 Mg Tablet.dr500 Mg PO BID PRN For Pain 10 Days Ref 0 Prov:Prasanth Plaza PAC 12/08/14 History History of ENT Problems?: No HEENT History: Denies:: Cataracts Dysphagia Sinus Problem Hx of Heart Problems?: No Cardiovascular History: Denies:: Cardiac Surgery Chest Pain Congestive Heart Failure Edema Heart Murmur Hypertension Irregular Heartbeat Pacemaker Thrombophlebitis Hx of Respiratory Problem?: Yes Respiratory History: Positive for:: Pneumonia (Few times) Denies:: Asthma COPD Chest Surgery Dyspnea Emphysema Hemoptysis Tuberculosis Hx Neurologic Problems?: No Neurological History: Denies:: Alzheimer's Disease CVA Dementia Dizziness Headaches Parkinson's Disease Seizures Hx of GI Problems?: No Gastrointestinal History: Positive for:: Gastroesphageal Reflux Denies:: Diverticulitis Gastrointestinal Bleeding Heartburn Hepatitis Hiatal Hernia Rectal Bleeding Hx of Problems?: No Genitourinary History: Denies:: HX of Hemodialysis Kidney Stones Urinary Tract Infection HX of Peritoneal Dialysis: No Male Hx: Denies:: Prostate Problems Scrotal Mass Testicular Surgery Hx Musculoskeletal Problems?: No Musculoskeletal History: Positive for:: Back Injury Denies:: Joint Replacement Musculoskeletal Trauma Hx of Psycho/Social Problems?: No Psycho Social History: Positive for:: Hx Depression Denies:: Anxiety Bipolar Disorder Suicide Attempt Hx Surgeries?: No Other History: Denies:: Cancer (Patient states doctor recently informed of tumor in abdomen) Hospitalization Thyroid Disease History Blood Transfusions: Denies:: Blood Transfuse Reaction Blood Transfusions Hx Diabetes: No Hx Alcohol Use: Yes (More than 25 years ago)Hx Substance Use: Yes (Last used 7 years ago) Smoking Status: Current Every Day Smoker Have You Smoked inLast 12 mo: Yes Stop/Bang Risk Assessment Category Category 1A: Patient has history of documented sleep apnea, and HAS NOT received any narcotic, sedative or anesthesia administration during this stay. Category 1B: Patient has history of documented sleep apnea, and HAS received any narcotic , sedative or anesthesia administration during this stay Category 2: Patient has SUSPECTED Obstructive Sleep Apnea, and HAS received any narcotic , sedative or anesthesia administration during this stay. Category 3: Patient has SUSPECTED Obstructive Sleep Apnea and HAS NOT received narcotic, sedative or anesthesia administration during this stay. Category 4: Outpatient in Procedural Areas with known sleep apnea or who screen positive for High Risk via the STOP/BANG questionnaire. Plan Impression Patient chart reviewed, patient interviewed and anesthestic plan with risks, benefits, and alternatives discussed, and informed consent obtained. Other Patient did not show for procedure. Danis Driscoll MD Jul 14, 2016 07:26
== END 2016-07-14 23:59 | disposition home or self-care (01) ==
LOC: END 01:25
PROVIDERS: ATTEND Internal Medicine Gastroenterology
DX: Z12.11 Encounter for screening for malignant neoplasm of colon (principal); Z53.8 Procedure and treatment not carried out for other reasons